=== PATIENT | female | born 1930 | race Caucasian/White ===

== ENCOUNTER 2016-08-05 09:08 | Emergency (ER) | payer MEDICARE ==
[2016-08-05 09:32] VITALS: BP 121/67
[2016-08-05] MEDS ORDERED: Nitrofurantoin Macrocrystals* 50 MG CAP PO ONE (10:38)
--- NOTE | 2016-08-05 11:04 | UC ---
Geovanna Galicia Salem, scribed for Beth Rouse MD on 08/05/16 at 1031 . Abdominal Pain Female HPI - HPI Summary HPI Summary: Patient is a 85 y/o female who presents to the with abd and back pain for several weeks. She denies CP, SOB, vomiting, dysuria, polyuria, pruritus, or vaginal discharge, but reports odor to urine and urinary frequency. She also reports chills, nausea, loss of appetite, and anxiety about an upcoming move into [place]. Pt scheduled to move on Sunday. Pts daughter present at bedside reports that pt saw her PCP, Dr. Daly but did not discuss the abd or back pain. Daughter reports that pt did not eat yesterday, but had breakfast today. She took 2 Acetaminophens yesterday, but has not taken any today. Pt has a hx of UTI with previous use of pessary Patients medication reviewed this visit. - History of Current Complaint Chief Complaint: UCAbdominalPain Stated Complaint: LOWER BACK/LOWER ABD PAIN Time Seen by Provider: 08/05/16 09:45 Hx Obtained From: Patient Onset/Duration: Gradual Onset, Still Present Timing: Constant Severity Initially: Moderate Severity Currently: Moderate Location: Diffuse Aggravating Factor(s): Nothing Alleviating Factor(s): Nothing Associated Signs and Symptoms: Positive: Back Pain, Nausea. Negative: Fever, Chest Pain, Vomiting Allergies/Adverse Reactions: Allergies Allergy/AdvReac Type Severity Reaction Status Date / Time Penicillins [PCN] Allergy Rash Verified 08/05/16 09:32 Sulfa Antibiotics Allergy Rash Verified 08/05/16 09:32 Atorvastatin [From Lipitor] AdvReac Unknown Joint Pain Verified 08/05/16 09:32 Simvastatin [From Zocor] AdvReac Unknown Joint Pain Verified 08/05/16 09:32 PMH/Surg Hx/FS Hx/Imm Hx Previously Healthy: Yes Endocrine History Of: Denies: Diabetes Cardiovascular History Of: Reports: Cardiac Disorders - stent, Hypertension Denies: Pacemaker/ICD Respiratory History Of: Denies: Asthma GI/ History Of: Reports: Kidney Stones - HAS HAD IN THE PAST, Renal Disease - 1 KIDNEY ATROPHIED Other History Of: Anticoagulant Therapy - 81 ASA DAILY - Surgical History Surgical History: Yes Surgery Procedure, Year, and Place: GALLBLADDER,. TONSILS AND ADNOIDS,. LEFT FEMORAL ARTERY STENTING/ANGIOGRAPHY,. BILATERAL CATARACTS,. MENISCUS CLEANED UP RIGHT KNEE,. RIGHT FOOT TENDON REPAIR OCTOBER 2015 (TENDON "SNAPPED",. HERNIA REPAIR,. HEMMOROIDECTOMY,. APPENDECTOMY - Family History Known Family History: Positive: Cardiac Disease, Hypertension, Other - CVA. - Social History Alcohol Use: None Substance Use Type: None Smoking Status (MU): Former Smoker Review of Systems Constitutional: Chills Skin: Negative Eyes: Negative ENT: Negative Respiratory: Negative Cardiovascular: Negative Gastrointestinal: Abdominal Pain, Other - Nausea. Loss of appetite. Genitourinary: Other - Odor. Motor: Negative Neurovascular: Negative Musculoskeletal: Other: - Back pain. Neurological: Negative Psychological: Anxious All Other Systems Reviewed And Are Negative: Yes Physical Exam Triage Information Reviewed: Yes Appearance: Well-Appearing, No Pain Distress, Well-Nourished Vital Signs: Initial Vital Signs Temp 97.4 F 08/05/16 09:25 Pulse 69 08/05/16 09:25 Resp 18 08/05/16 09:25 BP 121/67 08/05/16 09:25 Pulse Ox 100 08/05/16 09:25 Vital Signs Reviewed: Yes Eye Exam: Normal Eyes: Positive: Conjunctiva Clear, Conjunctiva Inflamed ENT Exam: Normal ENT: Positive: Normal ENT inspection, Hearing grossly normal, Pharynx normal, TMs normal Dental Exam: Normal Neck exam: Normal Neck: Positive: Supple, Nontender, No Lymphadenopathy Respiratory Exam: Normal Respiratory: Positive: Chest non-tender, Lungs clear, Normal breath sounds, No respiratory distress Cardiovascular Exam: Normal Cardiovascular: Positive: RRR, No Murmur Abdominal Exam: Normal Abdomen Description: Positive: Nontender, No Organomegaly, Soft, Other: - very minimal suprapubic discomfort with palpation. no guarding, no rebound no CVA tenderness Musculoskeletal: Positive: Other: - No pain c/t/l/s + SLE b/l + ambulatory with walker without difficulty or unsteady gait Neurological Exam: Normal Psychological Exam: Normal Skin Exam: Normal Abd Pain Female Course/Dx - Course Course Of Treatment: Pt presents with mild abd pain, malodorous urine, and frequency. pt with mild nausea and back pain. Pt with non-concerning exam. + UTI. culture ordered. macrobid. encourage fluids. reassurance. return prn - Differential Dx/Diagnosis Provider Diagnoses: uti Discharge - Discharge Plan Condition: Stable Disposition: HOME Prescriptions: Nitrofurantoin Monohyd Macro [Macrobid] 100 mg PO BID #20 cap Patient Education Materials: Urinary Tract Infection in Women (ED) Referrals: Ede Daly MD [Primary Care Provider] - Additional Instructions: - Stay well hydrated. Drink plenty of non-alcoholic, non-caffinated beverages - Okay to take Tylenol every 6 hours as needed for pain - Your urine has been sent for additional testing - if you need a different antibiotics you will receive a call from the hospital - Schedule a follow-up appointment with your doctor in 7-10 days to make sure your infection has cleared. Call your doctor or return with questions or concerns The documentation as recorded by the Geovanna mcclelland Salem accurately reflects the service I personally performed and the decisions made by , Beth Rouse MD.
== END 2016-08-05 10:45 | disposition home or self-care (01) ==
LOC: UCEAST 09:08
DX: N39.0 Urinary tract infection, site not specified (principal); I10 Essential (primary) hypertension; Z87.442 Personal history of urinary calculi; Z88.0 Allergy status to penicillin; Z88.2 Allergy status to sulfonamides; Z79.82 Long term (current) use of aspirin; Z87.891 Personal history of nicotine dependence
CPT/HCPCS: 81003; 87086; 99212; A9270-GY; G0463

== ENCOUNTER 2016-08-16 16:30 | Emergency (ER) | payer MEDICARE ==
[2016-08-16] MEDS ORDERED: NS 0.9% 500 ML BAG* 500 ML IV ONE (21:00)
[2016-08-16 21:17] LABS: Hematocrit 36 % (35-47); Hemoglobin 12.1 g/dl (12.0-16.0); Mean Corpuscular HGB Conc 34 g/dl (31-36); Mean Corpuscular Hemoglobin 32 pg (27-31); Mean Corpuscular Volume 94 fL (80-97); Mean Platelet Volume 8 um3 (7.4-10.4); Red Blood Count 3.78 10^6/ul (4.0-5.4); Red Cell Distribution Width 17 % (10.5-15); White Blood Count 7.3 10^3/ul (3.5-10.8)
[2016-08-16 21:32] LABS: Albumin 3.6 g/dL (3.2-5.2); BUN/Creatinine Ratio 20.5 (8-20); C Reactive Protein 6.34 mg/L (< 5.00); Calcium 10.9 mg/dL (8.6-10.3); EGFR African American 90.1 (>60); Globulin 2.3 g/dL (2-4); Total Bilirubin 0.7 mg/dL (0.2-1.0); Total Protein 5.9 g/dL (6.4-8.9)
--- NOTE | 2016-08-16 21:34 | RAD ---
INDICATION: Abdominal pain and constipation. COMPARISON: Comparison is made with prior study from January 26, 2015 TECHNIQUE: A CT scan of the abdomen and pelvis was performed without intravenous or oral contrast. Contiguous axial sections were obtained from the lung bases through the symphysis pubis. Images were reconstructed in the coronal and sagittal planes. FINDINGS: The lung bases are clear. No pleural effusion is present. The liver and spleen are within normal limits in size without significant focal abnormality on this noncontrast study. The patient is status post cholecystectomy. The pancreas appears to be within normal limits. The adrenal glands appear to be within normal limits. The right kidney is normal in size. The left kidney is severely atrophic with multiple hypodense lesions most consistent with cysts. There are bilateral renal vascular calcifications and small bilateral renal calculi measuring up to 3 mm in size in the right kidney. No hydronephrosis is seen. The abdominal aorta is ectatic and tortuous. There is severe calcific plaque present. No significant enlarged retroperitoneal lymph nodes are seen. The stomach, small and large bowel appear nondistended. The appendix is not visualized. There is moderate to severe descending and sigmoid diverticulosis without evidence for diverticulitis. There is a small to moderate amount of retained stool present. The uterus is retroverted and normal in size. No free intraperitoneal air or fluid is seen. No significant focal osseous abnormality is seen. IMPRESSION: 1. NO EVIDENCE FOR ACUTE FINDING OR CAUSE FOR THE PATIENT'S ABDOMINAL PAIN IS SEEN. 2. EXTENSIVE DESCENDING AND SIGMOID DIVERTICULOSIS WITHOUT EVIDENCE FOR DIVERTICULITIS. 3. SMALL BILATERAL NONOBSTRUCTING RENAL CALCULI. 4. ATROPHIC LEFT KIDNEY WITH MULTIPLE CYSTS.
--- NOTE | 2016-08-16 22:36 | ED ---
Charlotte Galicia Erika, scribed for Harsh Soto MD on 08/16/16 at 2156 . Abdominal Pain/Female - HPI Summary HPI Summary: Patient is an 85-year-old female presenting to the ED with her daughter with a CC of bilateral lower abdominal cramping for about 1 week. Patient was seen by an [facility] on 08/11/2016 and had an abdominal XR that showed bowel impaction. She was given magnesium citrate and has been taking it since then. She states she has had decreased appetite, but denies vomiting. She reports she has been having loose stools. Pt also reported back pain previously but denies any currently. Pt was on Macrobid 1 week ago for possible UTI but discontinued use on 08/11 due to negative urine culture. PSHx tubal ligation, appendectomy, cholecystectomy. Pt only has one functional kidney. - History of Current Complaint Chief Complaint: EDAbdPain Stated Complaint: IMPACTED BOWELS-SENT BY DR MONK Time Seen by Provider: 08/16/16 20:37 Hx Obtained From: Patient, Family/Director [employer] - Daughter Onset/Duration: Gradual Onset, Lasting Weeks - 1 week, Still Present Timing: Constant Severity Currently: Moderate Pain Intensity: 6 Pain Scale Used: 0-10 Numeric Location: Discrete At: RLQ, Discrete At: LLQ Radiates: Yes Radiates to: Back Character: Cramping Associated Signs and Symptoms: Positive: Decreased Appetite, Diarrhea. Negative : Vomiting Allergies/Adverse Reactions: Allergies Allergy/AdvReac Type Severity Reaction Status Date / Time Penicillins [PCN] Allergy Rash Verified 08/16/16 19:20 Sulfa Antibiotics Allergy Rash Verified 08/16/16 19:20 Atorvastatin [From Lipitor] AdvReac Unknown Joint Pain Verified 08/16/16 19:20 Simvastatin [From Zocor] AdvReac Unknown Joint Pain Verified 08/16/16 19:20 PMH/Surg Hx/FS Hx/Imm Hx Endocrine/Hematology History: Reports: Hx Anticoagulant Therapy - 81 ASA DAILY Denies: Hx Diabetes Cardiovascular History: Reports: Hx Hypertension, Other Cardiovascular Problems/ Disorders - HEART MURMUR Denies: Hx Pacemaker/ICD Respiratory History: Denies: Hx Asthma GI History: Reports: Hx Hiatal Hernia History: Reports: Hx Kidney Stones - HAS HAD IN THE PAST, Hx Renal Disease - 1 KIDNEY ATROPHIED Musculoskeletal History: Reports: Hx Arthritis - NECK, Hx Bursitis Sensory History: Reports: Hx Cataracts, Hx Contacts or Glasses - GLASSES Denies: Hx Hearing Aid Opthamlomology History: Reports: Hx Cataracts, Hx Contacts or Glasses - GLASSES Psychiatric History: Reports: Hx Panic Disorder - GETS STARTLED REAL EASY - Surgical History Surgery Procedure, Year, and Place: GALLBLADDER,. TONSILS AND ADNOIDS,. LEFT FEMORAL ARTERY STENTING/ANGIOGRAPHY,. BILATERAL CATARACTS,. MENISCUS CLEANED UP RIGHT KNEE,. RIGHT FOOT TENDON REPAIR OCTOBER 2015 (TENDON "SNAPPED",. HERNIA REPAIR,. HEMMOROIDECTOMY,. APPENDECTOMY Hx Anesthesia Reactions: No Infectious Disease History: No Infectious Disease History: Reports: Hx Shingles Denies: Traveled Outside the [place] in Last 30 Days - Family History Known Family History: Positive: Cardiac Disease, Hypertension, Other - CVA. - Social History Alcohol Use: None Hx Substance Use: No Substance Use Type: Reports: None Hx Tobacco Use: Yes Smoking Status (MU): Former Smoker Review of Systems Gastrointestinal: Other - decreased appetite Positive: Abdominal Pain, Diarrhea. Negative: Vomiting Positive: Myalgia - back pain All Other Systems Reviewed And Are Negative: Yes Physical Exam Triage Information Reviewed: Yes Vital Signs On Initial Exam: Initial Vitals Temp Pulse Resp BP Pulse Ox 97.3 F 73 17 130/53 98 08/16/16 16:46 08/16/16 16:46 08/16/16 16:46 08/16/16 16:46 08/16/16 16:46 Vital Signs Reviewed: Yes Appearance: Positive: Well-Appearing, No Pain Distress Skin: Positive: Warm, Skin Color Reflects Adequate Perfusion, Dry Head/Face: Positive: Normal Head/Face Inspection Eyes: Positive: EOMI, MA[place] ENT: Positive: Other - oral mucosa dry Neck: Positive: Supple, Nontender Respiratory/Lung Sounds: Positive: Clear to Auscultation, Breath Sounds Present Cardiovascular: Positive: RRR Abdomen Description: Positive: Soft, Other: - Mild mid-abdominal tenderness to palpation Bowel Sounds: Positive: Present - but high-pitched Musculoskeletal: Positive: Normal, Strength/ROM Intact Neurological: Positive: Normal, Sensory/Motor Intact, Alert, Oriented to Person Place, Time Psychiatric: Positive: Affect/Mood Appropriate Diagnostics - Vital Signs Vital Signs Temp Pulse Resp BP Pulse Ox 08/16/16 19:18 98.1 F 82 18 114/50 97 08/16/16 18:12 96.9 F 76 17 127/56 99 08/16/16 16:46 97.3 F 73 17 130/53 98 - Laboratory Lab Results: Lab Results 08/16/16 08/16/16 08/16/16 Range/Units 21:05 21:05 21:05 WBC 7.3 (3.5-10.8) 10^3/ul RBC 3.78 L (4.0-5.4) 10^6/ul Hgb 12.1 (12.0-16.0) g/dl Hct 36 (35-47) % MCV 94 (80-97) fL MCH 32 H (27-31) pg MCHC 34 (31-36) g/dl RDW 17 H (10.5-15) % Plt Count 138 L (150-450) 10^3/ul MPV 8 (7.4-10.4) um3 Neut % (Auto) 59.6 (38-83) % Lymph % (Auto) 28.9 (25-47) % [place]ata[place] % (Auto) 7.7 (1-9) % Eos % (Auto) 3.4 (0-6) % Baso % (Auto) 0.4 (0-2) % Absolute Neuts (auto) 4.4 (1.5-7.7) 10^3/ul Absolute Lymphs (auto) 2.1 (1.0-4.8) 10^3/ul Absolute Monos (auto) 0.6 (0-0.8) 10^3/ul Absolute Eos (auto) 0.2 (0-0.6) 10^3/ul Absolute Basos (auto) 0 (0-0.2) 10^3/ul Absolute Nucleated RBC 0.01 10^3/ul Nucleated RBC % 0.1 Sodium 131 L (133-145) mmol/L Potassium 3.0 L (3.5-5.0) mmol/L Chloride 95 L (101-111) mmol/L Carbon Dioxide 30 (22-32) mmol/L Anion Gap 6 (2-11) mmol/L BUN 16 (6-24) mg/dL Creatinine 0.78 (0.51-0.95) mg/dL Est GFR ( Amer) 90.1 (>60) Est GFR (Non-Af Amer) 70.0 (>60) BUN/Creatinine Ratio 20.5 H (8-20) Glucose 106 H (70-100) mg/dL Lactic Acid 1.0 (0.5-2.0) mmol/L Calcium 10.9 H (8.6-10.3) mg/dL Total Bilirubin 0.70 (0.2-1.0) mg/dL AST 26 (13-39) U/L ALT 17 (7-52) U/L Alkaline Phosphatase 57 (34-104) U/L C-Reactive Protein 6.34 H (< 5.00) mg/L Total Protein 5.9 L (6.4-8.9) g/dL Albumin 3.6 (3.2-5.2) g/dL Globulin 2.3 (2-4) g/dL Albumin/Globulin Ratio 1.6 (1-3) Lipase 35 (11.0-82.0) U/L Result Diagrams: 08/16/16 21:05 08/16/16 21:05 Lab Statement: Any lab studies that have been ordered have been reviewed, and results considered in the medical decision making process. - CT CT A/P W/O CT Interpretation Completed By: Radiologist - IMPRESSION: 1. NO EVIDENCE FOR ACUTE FINDING OR CAUSE FOR THE PATIENT'S ABDOMINAL PAIN IS SEEN. 2. EXTENSIVE DESCENDING AND SIGMOID DIVERTICULOSIS WITHOUT EVIDENCE FOR DIVERTICULITIS. 3. SMALL BILATERAL NONOBSTRUCTING RENAL CALCULI. 4. ATROPHIC LEFT KIDNEY WITH MULTIPLE CYSTS. Re-Evaluation - Re-Evaluation First Eval Re-Evaluation Time: 22:26 Comment: Discussed CT results and lab work with patient and family. Abdominal Pain Fem Course/Dx - Course Course Of Treatment: NO CRITICAL CARE TIME. DISCUSSED LAB/CT RESULTS WITH PATIENT/FAMILY. DISCHARGE HOME STABLE. - Diagnoses Provider Diagnoses: Abdominal pain, Constipation Discharge - Discharge Plan Condition: Stable Disposition: HOME Patient Education Materials: Abdominal Pain (ED), Constipation (ED) Referrals: Ede Monk MD [Primary Care Provider] - Additional Instructions: FOLLOW UP WITH YOUR DOCTOR. RETURN TO THE EMERGENCY DEPARTMENT FOR ANY WORSENING OF YOUR CONDITION; PAIN, FEVER, YOU FEEL ILL OR QUESTIONS OR CONCERNS. The documentation as recorded by the Charlotte mcclelland Erika accurately reflects the service I personally performed and the decisions made by me, Harsh Soto MD.
[2016-08-16 23:01] VITALS: BP 132/65
== END 2016-08-16 23:00 | disposition home or self-care (01) ==
LOC: ED 16:30
DX: R10.30 Lower abdominal pain, unspecified (principal); K59.00 Constipation, unspecified; R19.7 Diarrhea, unspecified; R63.0 Anorexia; Z87.891 Personal history of nicotine dependence
CPT/HCPCS: 36415; 74176; 80053; 83605; 83690; 85025; 86140; 99283

== ENCOUNTER 2016-11-07 18:22 | Inpatient (IN) | payer MEDICARE ==
[2016-11-07] MEDS ORDERED: NS 0.9% 1000 ML* 1,000 ML IV ONE (19:50)
[2016-11-07] MEDS ORDERED: Ondansetron INJ* 2 MG/ML VIAL IV ONE (20:07)
[2016-11-07 20:40] LABS: Hematocrit 41 % (35-47); Hemoglobin 13.6 g/dl (12.0-16.0); Mean Corpuscular HGB Conc 33 g/dl (31-36); Mean Corpuscular Hemoglobin 32 pg (27-31); Mean Corpuscular Volume 96 fL (80-97); Mean Platelet Volume 8 um3 (7.4-10.4); Red Blood Count 4.28 10^6/ul (4.0-5.4); Red Cell Distribution Width 15 % (10.5-15); White Blood Count 25.9 10^3/ul (3.5-10.8)
[2016-11-07 20:42] LABS: Add Diff/Slide Review? Slide Review Added; Comments Flag Yes
[2016-11-07 20:55] LABS: C Reactive Protein 128.4 mg/L (< 5.00)
[2016-11-07 21:06] LABS: Troponin I 0.05 ng/mL (<0.04)
[2016-11-07 22:59] LABS: Urine Bacteria Absent (Absent); Urine Bilirubin Negative (Negative); Urine Glucose 1+(50 mg/dL) (Negative); Urine Nitrite Negative (Negative)
[2016-11-07] MEDS ORDERED: Ciprofloxacin 400MG IVPREMIX(* 400 MG/200 ML BAG IVPB ONE (23:07)
[2016-11-07] MEDS ORDERED: metroNIDAZOLE IV 500 MG/100ML* 500 MG/100 ML BAG IVPB ONE (23:07)
--- NOTE | 2016-11-07 23:13 | HP ---
H&P (Free Text) History and Physical: PCP: Tisha Sarkar MD Date/Time of Evaluation: 11/07/20162119 CC: abdominal pain & fall HPI: Mrs Hoang (pronounced Mus-eeky) is an 85YO female resident of [facility] w/ HX HTN, PAOD s/p failed RLE arterial stent, non-functional L kidney, chronic episodic abdominal pain w/ diarrhea who developed abdominal pain with diarrhea this AM and was found on the floor of her apartment. The on-call physician for the facility was called and ordered lab work revealing elevated WBCs and recommended evaluation. She denies F/C, N/V, chest pain, SOB, palpitations, B/U/F of urine, black/bloody stools, or other issues. Evaluation is most notable for a CT abd/pel WO read as enteritis and WBCs of 25k. Also noted on her CT was extensive aortic calcifications giving rise to concern for chronic intestinal ischemia in light of her HX abdominal pain/ diarrhea and known PAOD. PMedHx HTN PAOD s/p RLE arterial stent non-functioning L kidney chronic episodic abdominal pain w/ diarrhea hiatal hernia OA moderately hard of hearing Ambulatory Orders Amlodipine Besylate [Norvasc] 5 mg PO DAILY 04/09/12 Aspirin Low Dose CHEW TAB* [Aspirin Low Dose TAB*] 81 mg PO DAILY 04/09/12 Hydrochlorothiazide TAB* [Hydrodiuril TAB*] 25 mg PO DAILY 04/09/12 Losartan TAB* [Cozaar TAB*] 50 mg PO BID 04/09/12 Metoprolol Tartrate TAB* [Lopressor TAB*] 25 mg PO BID 04/09/12 Multi For Her 50+ 1 tab PO DAILY 04/09/12 Acetaminophen TAB* [Tylenol TAB*] 650 mg PO Q6HR PRN 08/30/12 Nitrofurantoin Monohyd Macro [Macrobid] 100 mg PO BID #20 cap 08/05/16 Allergies Penicillins [PCN] Allergy (Verified 08/16/16 19:20) Rash Sulfa Antibiotics Allergy (Verified 08/16/16 19:20) Rash Atorvastatin [From Lipitor] Adverse Reaction (Unknown, Verified 08/16/16 19:20) Joint Pain Simvastatin [From Zocor] Adverse Reaction (Unknown, Verified 08/16/16 19:20) Joint Pain PSurgHx OU catract extraction cholecystectomy appendectomy hemorrhoidectomy RLE arterial stent, subsequently failed R knee arthroscopy SocHx: quit smoking >25years ago, denies alcohol or recreational drug HX; , resides at [facility]; full code trial of intubation FamHx: positive for CAD, HTN, HLD, DM2 ROS: as above, otherwise reviewed and all were negative Constitutional: NAD, normally developed, well-nourished elderly white female vitals: Vital Signs Temp 37.0 C 11/07/16 19:31 Pulse 90 11/07/16 23:00 Resp 18 11/07/16 23:00 BP 117/67 11/07/16 23:00 Pulse Ox 92 11/07/16 23:00 Intake & Output 11/06/16 11/07/16 11/07/16 23:59 11:59 23:59 Weight 65.771 kg HEENM: atraumatic; sclera/conjunctiva: non-icteric/clear; hearing: moderately hard of hearing; oropharynx: clear, mucosa tacky Neck: soft tissue: non-tender; thyroid: normal Pulmonary: clear to auscultation bilaterally, good aeration, no accessory muscle use CV: RR/RR, normal S1S2, no carotid bruit, no jugular venous distention, 2+ B DP/ PT, no edema Abdominal: soft, non-distended, mild/mod tenderness in epigastrum, no rebound/ guarding/rigidity, normoactive bowel sounds, no hepatosplenomegaly or masses, no costovertebral angle tenderness Musculoskeletal: general: grossly intact; no overt deformities Integumental: normal appearance and texture of exposed skin Psychiatric orientation: AA&O to PPS affect: calm mood: cooperative eye contact: content: memory: responses: insight: Testing: Lab Results 11/07/16 11/07/16 11/07/16 Range/Units 20:30 20:30 20:30 WBC 25.9 H (3.5-10.8) 10^3/ul RBC 4.28 (4.0-5.4) 10^6/ul Hgb 13.6 (12.0-16.0) g/dl Hct 41 (35-47) % MCV 96 (80-97) fL MCH 32 H (27-31) pg MCHC 33 (31-36) g/dl RDW 15 (10.5-15) % Plt Count 177 (150-450) 10^3/ul MPV 8 (7.4-10.4) um3 Neut % (Auto) 89.5 H (38-83) % Lymph % (Auto) 4.3 L (25-47) % Harmon % (Auto) 6.0 (1-9) % Eos % (Auto) 0 (0-6) % Baso % (Auto) 0.2 (0-2) % Absolute Neuts (auto) 23.2 H (1.5-7.7) 10^3/ul Absolute Lymphs (auto) 1.1 (1.0-4.8) 10^3/ul Absolute Monos (auto) 1.5 H (0-0.8) 10^3/ul Absolute Eos (auto) 0 (0-0.6) 10^3/ul Absolute Basos (auto) 0.1 (0-0.2) 10^3/ul Absolute Nucleated RBC 0.01 10^3/ul Nucleated RBC % 0 INR (Anticoag Therapy) 0.98 (0.89-1.11) APTT 28.6 (26.0-36.3) seconds Lactic Acid 1.5 (0.5-2.0) mmol/L Troponin I (<0.04) ng/mL C-Reactive Protein (< 5.00) mg/L B-Natriuretic Peptide ( - 100) pg/mL Lipase (11.0-82.0) U/L Urine Color Urine Appearance Urine pH (5-9) Ur Specific [place] (1.010-1.030) Urine Protein (Negative) Urine Ketones (Negative) Urine Blood (Negative) Urine Nitrate (Negative) Urine Bilirubin (Negative) Urine Urobilinogen (Negative) Ur Leukocyte Esterase (Negative) Urine WBC (Auto) (Absent) Urine RBC (Auto) (Absent) Ur Squamous Epith Cells (Absent) Urine Bacteria (Absent) Urine Glucose (Negative) 11/07/16 11/07/16 11/07/16 Range/Units 20:30 20:30 22:41 WBC (3.5-10.8) 10^3/ul RBC (4.0-5.4) 10^6/ul Hgb (12.0-16.0) g/dl Hct (35-47) % MCV (80-97) fL MCH (27-31) pg MCHC (31-36) g/dl RDW (10.5-15) % Plt Count (150-450) 10^3/ul MPV (7.4-10.4) um3 Neut % (Auto) (38-83) % Lymph % (Auto) (25-47) % Harmon % (Auto) (1-9) % Eos % (Auto) (0-6) % Baso % (Auto) (0-2) % Absolute Neuts (auto) (1.5-7.7) 10^3/ul Absolute Lymphs (auto) (1.0-4.8) 10^3/ul Absolute Monos (auto) (0-0.8) 10^3/ul Absolute Eos (auto) (0-0.6) 10^3/ul Absolute Basos (auto) (0-0.2) 10^3/ul Absolute Nucleated RBC 10^3/ul Nucleated RBC % INR (Anticoag Therapy) (0.89-1.11) APTT (26.0-36.3) seconds Lactic Acid (0.5-2.0) mmol/L Troponin I 0.05 H* (<0.04) ng/mL C-Reactive Protein 128.40 H (< 5.00) mg/L B-Natriuretic Peptide 569 H ( - 100) pg/mL Lipase 11 (11.0-82.0) U/L Urine Color Yellow Urine Appearance Clear Urine pH 6.0 (5-9) Ur Specific [place] 1.012 (1.010-1.030) Urine Protein Negative (Negative) Urine Ketones Negative (Negative) Urine Blood Negative (Negative) Urine Nitrate Negative (Negative) Urine Bilirubin Negative (Negative) Urine Urobilinogen Negative (Negative) Ur Leukocyte Esterase Trace H (Negative) Urine WBC (Auto) Trace(0-5/hpf) (Absent) Urine RBC (Auto) Trace(0-2/hpf) (Absent) Ur Squamous Epith Cells Present H (Absent) Urine Bacteria Absent (Absent) Urine Glucose 1+(50 mg/dl) H (Negative) CT abd/pel WO, personally reviewed: Moderately thickened small bowel RLQ w/ congested mesenteric vessels, probably enteritis. Short segment of borderline dilated small bowel in this region, probably ileus or partial obstruction. Diverticulosis colon w/o acute deverticulitis. Fluid in rectum. No colitis, free fluid, or free air. Appendix not seen. No pericecal inflammation to suggest acute appendicitis. Atrophic L kidney containing multiple cysts. Vascular calcifications more likely than non-obstructing stones R kidney. No ureterolithiasis or obstructive uropathy. No bladder calculi. Unremarkable pancreas. Cholecystectomy. Emphysematous changes lung bases. Impression: 85F presenting with abdominal pain found to have probable enteritis +/- early SBO vs ileus DIAGNOSIS & PLAN Primary enteritis +/- early SBO vs ileus : IVFs : IV ciprofloxacin & metronidazole : blood CX : pain control : supportive care elevated troponin : no chest pain/SOB, suspect demand ischemia : telemetry, trend elevated BNP : no s/s CHF, observe respiratory status closely while on IVFs : daily weights : strict I&Os hypoKalemia : 2nd diarrhea : replace & recheck : check baseline pCXR Secondary HTN : review meds once reconciled PAOD s/p renal artery stent : review meds once reconciled Admission Rational: inpatient for acute enteritis +/- SBO/ileus not anticipated to resolve adequately w/i 48H to allow for discharge DVTp: SCDs & heparin SQ Code Status: DNR HCP: daughter, Reshma Stone
[2016-11-07] MEDS ORDERED: Ondansetron INJ* 2 MG/ML VIAL IV PRN (23:40)
[2016-11-08 00:17] LABS: Albumin 4.1 g/dL (3.2-5.2); BUN/Creatinine Ratio 24.4 (8-20); Calcium 10.8 mg/dL (8.6-10.3); EGFR African American 80.5 (>60); EGFR Non-African American 62.6 (>60); Globulin 2.7 g/dL (2-4); Total Protein 6.8 g/dL (6.4-8.9)
[2016-11-08] MEDS ORDERED: Potassium Chlor TAB* 20 MEQ TAB.ER PO ONE (00:39)
--- NOTE | 2016-11-08 01:55 | ED ---
Anita Galicia Rebecca, scribed for Harsh Soto MD on 11/07/16 at 1945 . Abdominal Pain/Female - HPI Summary HPI Summary: Pt is an 85 y/o F who presents to ED c/o LLQ and RLQ abdominal pain. Daughter reports pain began 2 weeks ago. Pain is currently moderate, ranked 5/10. Additionally c/o diarrhea and fatigue. Diarrhea alleviated by 2 Immodium taken this morning, with no further BM since administration. Denies fever, chills, SOB , acute edema, dysuria or urine frequency. She was found this morning on the ground at [place] s/p mechanical fall which she was able to get herself up from. Daughter reports that the pt's PCP contreras blood this morning, called with results that she had elevated WBC and advised that she be evaluated by [facility] [place] ED. PSHx hysterectomy, appy, cholecystectomy. PMHx diverticulitis. Is not on any blood thinners. - History of Current Complaint Chief Complaint: EDAbdPain Stated Complaint: FALL Time Seen by Provider: 11/07/16 19:37 Hx Obtained From: Patient, Family/Showroom Consultant - Daughters Onset/Duration: Lasting Weeks - 2 weeks, Still Present Severity Currently: Moderate Pain Intensity: 5 Pain Scale Used: 0-10 Numeric Location: Discrete At: RLQ, Discrete At: LLQ Aggravating Factor(s): Nothing Alleviating Factor(s): Medications - Immodium Associated Signs and Symptoms: Positive: Diarrhea, Other: - Fatigue. Negative: Urinary Symptoms Allergies/Adverse Reactions: Allergies Allergy/AdvReac Type Severity Reaction Status Date / Time Penicillins [PCN] Allergy Rash Verified 08/16/16 19:20 Sulfa Antibiotics Allergy Rash Verified 08/16/16 19:20 Atorvastatin [From Lipitor] AdvReac Unknown Joint Pain Verified 08/16/16 19:20 Simvastatin [From Zocor] AdvReac Unknown Joint Pain Verified 08/16/16 19:20 PMH/Surg Hx/FS Hx/Imm Hx Endocrine/Hematology History: Reports: Hx Anticoagulant Therapy - 81 ASA DAILY Denies: Hx Diabetes Cardiovascular History: Reports: Hx Hypertension, Other Cardiovascular Problems/ Disorders - HEART MURMUR Denies: Hx Pacemaker/ICD Respiratory History: Denies: Hx Asthma GI History: Reports: Hx Hiatal Hernia History: Reports: Hx Kidney Stones - HAS HAD IN THE PAST, Hx Renal Disease - 1 KIDNEY ATROPHIED Musculoskeletal History: Reports: Hx Arthritis - NECK, Hx Bursitis Sensory History: Reports: Hx Cataracts, Hx Contacts or Glasses - GLASSES Denies: Hx Hearing Aid Opthamlomology History: Reports: Hx Cataracts, Hx Contacts or Glasses - GLASSES Psychiatric History: Reports: Hx Panic Disorder - GETS STARTLED REAL EASY - Surgical History Surgery Procedure, Year, and Place: GALLBLADDER,. TONSILS AND ADNOIDS,. LEFT FEMORAL ARTERY STENTING/ANGIOGRAPHY,. BILATERAL CATARACTS,. MENISCUS CLEANED UP RIGHT KNEE,. RIGHT FOOT TENDON REPAIR OCTOBER 2015 (TENDON "SNAPPED",. HERNIA REPAIR,. HEMMOROIDECTOMY,. APPENDECTOMY ,. HYSTERECTOMY Hx Anesthesia Reactions: No Infectious Disease History: No Infectious Disease History: Reports: Hx Shingles Denies: Traveled Outside the [place] in Last 30 Days - Family History Known Family History: Positive: Cardiac Disease, Hypertension, Other - CVA. - Social History Alcohol Use: None Hx Substance Use: No Substance Use Type: Reports: None Hx Tobacco Use: Yes Smoking Status (MU): Former Smoker Review of Systems Negative: Fever, Chills Negative: Shortness Of Breath Positive: Abdominal Pain - Lower abdomen, Diarrhea Negative: dysuria, frequency Negative: Edema - Denies acute edema All Other Systems Reviewed And Are Negative: Yes Physical Exam - Summary Physical Exam Summary: General: well-appearing, no pain distress Skin: warm, color reflects adequate perfusion, dry Head: normal Eyes: EOMI, MAINE ENT: oral mucosa dry Neck: supple, nontender Respiratory: CTA, breath sounds present Cardiovascular: RRR Abdomen: soft, mild tenderness in the lower abdomen to palpation Bowel: hypoactive bowel sounds Musculoskeletal: strength/ROM intact, no flank tenderness, mild pedal edema Neurological: normal, sensory/motor intact, A&O x3 Psychological: affect/mood appropriate Triage Information Reviewed: Yes Vital Signs On Initial Exam: Initial Vitals Temp Pulse Resp BP Pulse Ox 98.0 F 63 18 133/58 96 11/07/16 18:24 11/07/16 18:24 11/07/16 18:24 11/07/16 18:24 11/07/16 18:24 Vital Signs Reviewed: Yes - Angelica Coma Scale Coma Scale Total: 14 Diagnostics - Vital Signs Vital Signs Temp Pulse Resp BP Pulse Ox 11/07/16 19:31 98.6 F 94 20 113/48 95 11/07/16 18:24 98.0 F 63 18 133/58 96 - Laboratory Lab Results: Lab Results 11/07/16 11/07/16 11/07/16 Range/Units 20:30 20:30 20:30 WBC 25.9 H (3.5-10.8) 10^3/ul RBC 4.28 (4.0-5.4) 10^6/ul Hgb 13.6 (12.0-16.0) g/dl Hct 41 (35-47) % MCV 96 (80-97) fL MCH 32 H (27-31) pg MCHC 33 (31-36) g/dl RDW 15 (10.5-15) % Plt Count 177 (150-450) 10^3/ul MPV 8 (7.4-10.4) um3 Neut % (Auto) 89.5 H (38-83) % Lymph % (Auto) 4.3 L (25-47) % [place] % (Auto) 6.0 (1-9) % Eos % (Auto) 0 (0-6) % Baso % (Auto) 0.2 (0-2) % Absolute Neuts (auto) 23.2 H (1.5-7.7) 10^3/ul Absolute Lymphs (auto) 1.1 (1.0-4.8) 10^3/ul Absolute Monos (auto) 1.5 H (0-0.8) 10^3/ul Absolute Eos (auto) 0 (0-0.6) 10^3/ul Absolute Basos (auto) 0.1 (0-0.2) 10^3/ul Absolute Nucleated RBC 0.01 10^3/ul Nucleated RBC % 0 INR (Anticoag Therapy) 0.98 (0.89-1.11) APTT 28.6 (26.0-36.3) seconds Sodium (133-145) mmol/L Potassium (3.5-5.0) mmol/L Chloride (101-111) mmol/L Carbon Dioxide (22-32) mmol/L Anion Gap (2-11) mmol/L BUN (6-24) mg/dL Creatinine (0.51-0.95) mg/dL Est GFR ( Amer) (>60) Est GFR (Non-Af Amer) (>60) BUN/Creatinine Ratio (8-20) Glucose (70-100) mg/dL Lactic Acid 1.5 (0.5-2.0) mmol/L Calcium (8.6-10.3) mg/dL Total Bilirubin (0.2-1.0) mg/dL AST (13-39) U/L ALT (7-52) U/L Alkaline Phosphatase (34-104) U/L Troponin I (<0.04) ng/mL C-Reactive Protein (< 5.00) mg/L B-Natriuretic Peptide ( - 100) pg/mL Total Protein (6.4-8.9) g/dL Albumin (3.2-5.2) g/dL Globulin (2-4) g/dL Albumin/Globulin Ratio (1-3) Lipase (11.0-82.0) U/L Urine Color Urine Appearance Urine pH (5-9) Ur Specific [place] (1.010-1.030) Urine Protein (Negative) Urine Ketones (Negative) Urine Blood (Negative) Urine Nitrate (Negative) Urine Bilirubin (Negative) Urine Urobilinogen (Negative) Ur Leukocyte Esterase (Negative) Urine WBC (Auto) (Absent) Urine RBC (Auto) (Absent) Ur Squamous Epith Cells (Absent) Urine Bacteria (Absent) Urine Glucose (Negative) 11/07/16 11/07/16 11/07/16 Range/Units 20:30 20:30 22:41 WBC (3.5-10.8) 10^3/ul RBC (4.0-5.4) 10^6/ul Hgb (12.0-16.0) g/dl Hct (35-47) % MCV (80-97) fL MCH (27-31) pg MCHC (31-36) g/dl RDW (10.5-15) % Plt Count (150-450) 10^3/ul MPV (7.4-10.4) um3 Neut % (Auto) (38-83) % Lymph % (Auto) (25-47) % [place] % (Auto) (1-9) % Eos % (Auto) (0-6) % Baso % (Auto) (0-2) % Absolute Neuts (auto) (1.5-7.7) 10^3/ul Absolute Lymphs (auto) (1.0-4.8) 10^3/ul Absolute Monos (auto) (0-0.8) 10^3/ul Absolute Eos (auto) (0-0.6) 10^3/ul Absolute Basos (auto) (0-0.2) 10^3/ul Absolute Nucleated RBC 10^3/ul Nucleated RBC % INR (Anticoag Therapy) (0.89-1.11) APTT (26.0-36.3) seconds Sodium 129 L (133-145) mmol/L Potassium 3.0 L (3.5-5.0) mmol/L Chloride 93 L (101-111) mmol/L Carbon Dioxide 25 (22-32) mmol/L Anion Gap 11 (2-11) mmol/L BUN 21 (6-24) mg/dL Creatinine 0.86 (0.51-0.95) mg/dL Est GFR ( Amer) 80.5 (>60) Est GFR (Non-Af Amer) 62.6 (>60) BUN/Creatinine Ratio 24.4 H (8-20) Glucose 132 H (70-100) mg/dL Lactic Acid (0.5-2.0) mmol/L Calcium 10.8 H (8.6-10.3) mg/dL Total Bilirubin 1.00 (0.2-1.0) mg/dL AST 26 (13-39) U/L ALT 12 (7-52) U/L Alkaline Phosphatase 61 (34-104) U/L Troponin I 0.05 H* (<0.04) ng/mL C-Reactive Protein 128.40 H (< 5.00) mg/L B-Natriuretic Peptide 569 H ( - 100) pg/mL Total Protein 6.8 (6.4-8.9) g/dL Albumin 4.1 (3.2-5.2) g/dL Globulin 2.7 (2-4) g/dL Albumin/Globulin Ratio 1.5 (1-3) Lipase 11 (11.0-82.0) U/L Urine Color Yellow Urine Appearance Clear Urine pH 6.0 (5-9) Ur Specific [place] 1.012 (1.010-1.030) Urine Protein Negative (Negative) Urine Ketones Negative (Negative) Urine Blood Negative (Negative) Urine Nitrate Negative (Negative) Urine Bilirubin Negative (Negative) Urine Urobilinogen Negative (Negative) Ur Leukocyte Esterase Trace H (Negative) Urine WBC (Auto) Trace(0-5/hpf) (Absent) Urine RBC (Auto) Trace(0-2/hpf) (Absent) Ur Squamous Epith Cells Present H (Absent) Urine Bacteria Absent (Absent) Urine Glucose 1+(50 mg/dl) H (Negative) Result Diagrams: 11/07/16 20:30 11/07/16 20:30 Lab Statement: Any lab studies that have been ordered have been reviewed, and results considered in the medical decision making process. - CT CT Abd/Pel CT Interpretation Completed By: Radiologist - Moderately thickened small bowel right lower quadrant with congested mesenteric vessels, probably enteritis. Short segment of borderline dilated small bowel in this region, probably ileus or partial obstruction. Diverticulosis colon without acute diverticulitis. Fluid in rectum. No colitis, free fluid or free air. Appendix not seen. No pericecal inflammation to suggest acute appendicitis. Artrophic left kidney containing multiple cysts. Vascular calcifications more likely than nonobstructing stones right kidney. No ureterolithiasis or obstructive uropathy. No bladder calculi. Unremarkable pancreas. Cholecystectomy. Emphysematous changes lung bases. Re-Evaluation - Re-Evaluation First Eval Re-Evaluation Time: 22:59 Comment: Discussed lab and Abd/Pel CT results with the pt and her family. Continues to be tender in the RLQ. Abdominal Pain Fem Course/Dx - Course Course Of Treatment: Pt is an 85 y/o F who presents to ED c/o moderate lower abdominal pain for 2 weeks, currently ranked 5/10. Additionally c/o diarrhea and fatigue. Diarrhea alleviated by 2 Immodium taken this morning. Denies fever , chills, SOB, acute edema, dysuria or urine frequency. She was found this morning on the ground at [place] s/p mechanical fall which she was able to get herself up from. Daughter reports that the pt's PCP contreras blood this morning , called with results that she had elevated WBC and advised that she be evaluated by [facility] [place] ED. PMHx diverticulitis. Is not on any blood thinners. WBC of 25.9, Troponin of 0.05, CRP of 128.40, BNP of 569. CT Abd/Pel findings reported above. Discussed care of pt with Dr. Reid who accepts pt for admission. NO CRITICAL CARE TIME. ADMIT HOSPITALIST STABLE. - Diagnoses Provider Diagnoses: Abdominal pain, Partial obstruction of small intestine, Inflammation of small intestine - Provider Notifications Discussed Care Of Patient With: Rey Reid Time Discussed With Above Provider: 23:07 Instructed by Provider To: Other - Accepts pt for admission. Discharge - Discharge Plan Condition: Stable Disposition: ADMITTED TO [facility] documentation as recorded by the Anita mcclelland Rebecca accurately reflects the service I personally performed and the decisions made by me, Harsh Soto MD.
[2016-11-08 04:39] LABS: Hematocrit 36 % (35-47); Hemoglobin 12.2 g/dl (12.0-16.0); Mean Corpuscular HGB Conc 34 g/dl (31-36); Mean Corpuscular Hemoglobin 32 pg (27-31); Mean Corpuscular Volume 96 fL (80-97); Mean Platelet Volume 9 um3 (7.4-10.4); Red Blood Count 3.78 10^6/ul (4.0-5.4); Red Cell Distribution Width 15 % (10.5-15); White Blood Count 21.6 10^3/ul (3.5-10.8)
[2016-11-08 04:41] LABS: Add Diff/Slide Review? Slide Review Added; Comments Flag Yes
[2016-11-08 04:47] LABS: Calcium 9.6 mg/dL (8.6-10.3); EGFR African American 95.7 (>60); EGFR Non-African American 74.4 (>60); Potassium 2.8 mmol/L (3.5-5.0)
[2016-11-08 04:55] LABS: Troponin I 0.04 ng/mL (<0.04)
[2016-11-08 05:11] LABS: Immature Granulocytes 15 % (0-9); Neutrophil % 75 % (38-83); RBC Morphology Normal (Normal)
[2016-11-08] MEDS: Potassium Chlor TAB* 20 MEQ TAB.ER PO SCH ×2 (06:14→10:39)
[2016-11-08] MEDS: Omeprazole CAP* 20 MG PO SCH (06:14)
[2016-11-08] MEDS: Heparin VIAL(*) 5000 UNITS/ML VIAL (FIVE THOUSAND) SUBCUT SCH ×3 (06:15→21:43)
--- NOTE | 2016-11-08 07:32 | RAD ---
INDICATION: Lower abdominal pain. Diarrhea. COMPARISON: CT August 16, 2016 TECHNIQUE: Axial source images were acquired from the level hemidiaphragms to the symphysis pubis. Examination is performed with oral contrast. No intravenous contrast was given. This limits evaluation of solid viscera. Lung bases: There are emphysematous changes in the lung bases. There is a calcified mitral annulus.. Liver: There is mild hepatomegaly. Noncontrast imaging shows no evidence of a hepatic mass or ductal dilatation. Gallbladder: Cholecystectomy. Spleen: The spleen is normal in size. The noncontrast CT appearance is normal. Pancreas: Noncontrast imaging shows no pancreatic mass or ductal dilitation. Adrenal glands: Suspect mild left adrenal hyperplasia. Kidneys/Bladder: Atrophic left kidney. Bilateral nonobstructive nephrolithiasis. Some of the renal calcifications may be vascular. Exophytic 4.2 cm left renal cyst. Smaller parapelvic cysts. Normal bladder. Adenopathy: There is no evidence of intraperitoneal or retroperitoneal adenopathy. Evaluation is limited without oral contrast. Fluid collections: There are no free or localized fluid collections. Vessels: There are atherosclerotic changes of the aorta and iliac vessels. There is no focal aneurysm. The IVC appears normal Pelvic organs: The uterus and adnexa appear normal GI tract: Possible gastric mucosal thickening. Limited evaluation of the stomach as there is very little oral contrast no specific CT abnormality the small bowel. Moderate diverticula of the sigmoid colon. No CT evidence of acute diverticulitis. No obstruction or perforation. Soft tissues: No soft tissue abnormalities of the extraperitoneal abdomen or pelvis are identified. Osseous structures: Moderately advanced spondylitic change. IMPRESSION: 1. Bilateral nonobstructive nephrolithiasis. 2. Extensive diverticula. No CT evidence of acute diverticulitis 3. Cholecystectomy 4. No acute CT findings.
[2016-11-08] MEDS: Dicyclomine CAP* 10 MG PO SCH ×3 (07:43→16:33)
--- NOTE | 2016-11-08 07:46 | RAD ---
INDICATION: Elevated BNP. COMPARISON: Comparison is made with a prior chest x-ray study from January 26, 2015. TECHNIQUE: A portable view of the chest was obtained. FINDINGS: The heart is within normal limits in size. Note is made of mitral annular calcification. The thoracic aorta is tortuous. The lungs are slightly hyperinflated and clear. No pleural effusion is seen. IMPRESSION: NO EVIDENCE FOR ACUTE DISEASE.
[2016-11-08] MEDS: metroNIDAZOLE IV 500 MG/100ML* 500 MG/100 ML BAG IVPB SCH ×2 (10:38→22:28)
[2016-11-08] MEDS: Acetaminophen TAB* 325 MG PO PRN (11:11)
[2016-11-08] MEDS: oxyCODONE TAB* 5 MG TAB PO PRN ×3 (12:18→20:56)
[2016-11-08] MEDS: Ciprofloxacin 400MG IVPREMIX(* 400 MG/200 ML BAG IVPB SCH (14:26)
[2016-11-08] MEDS ORDERED: Potassium Chlor TAB* 10 MEQ TAB.ER PO ONE (16:57)
[2016-11-08] MEDS: KCL 20 MEQ/100 ML IVPREMIX* 20 MEQ/100 ML BAG IV SCH ×2 (17:06→21:43)
[2016-11-08] MEDS ORDERED: Magnesium Sulf 4 GM/100 ML IV* 4,000 MG/100 ML BAG IVPB ONE (17:30)
--- NOTE | 2016-11-08 17:39 | RAD ---
HISTORY: Right knee trauma, fall COMPARISONS: August 19, 2014 VIEWS: 4, Frontal, lateral, axial, and oblique views of the right knee FINDINGS: BONE DENSITY: There is diffuse osteopenia. BONES: There is no displaced fracture. JOINTS: There is moderate tract or mental osteoarthritis. There is a large suprapatellar joint effusion ALIGNMENT: There is no dislocation. SOFT TISSUES: There is peripheral arterial calcification OTHER FINDINGS: None. IMPRESSION: 1. OSTEOPENIA. 2. OSTEOARTHRITIS. 3. PERIPHERAL ARTERIAL DISEASE. 4. LARGE JOINT EFFUSION. 5. NO ACUTE OSSEOUS INJURY. THE DEGREE OF OSTEOPENIA MAY MAKE A NONDISPLACED FRACTURE RADIOGRAPHICALLY OCCULT. IF SYMPTOMS PERSIST, RECOMMEND REPEAT IMAGING.
--- NOTE | 2016-11-08 17:40 | RAD ---
HISTORY: Rule out obstruction COMPARISONS: August 11, 2016 VIEWS: Frontal views of the abdomen. FINDINGS: BOWEL: There is a nonobstructive bowel gas pattern. There is gaseous distention of the colon. Oral contrast is noted within the colon. CALCULI: There are no abnormal calculi. BONES AND SOFT TISSUES: There is a scoliotic curvature of the spine. Degenerative changes are noted OTHER FINDINGS: The lung bases are clear. There is no subphrenic gas. IMPRESSION: NONOBSTRUCTIVE BOWEL GAS PATTERN. GASEOUS DISTENTION OF THE COLON WITHOUT DILATATION
[2016-11-09] MEDS: KCL 20 MEQ/100 ML IVPREMIX* 20 MEQ/100 ML BAG IV SCH (00:57)
[2016-11-09] MEDS: metroNIDAZOLE IV 500 MG/100ML* 500 MG/100 ML BAG IVPB SCH ×3 (03:50→18:08)
[2016-11-09] MEDS: Ciprofloxacin 400MG IVPREMIX(* 400 MG/200 ML BAG IVPB SCH ×2 (04:05→13:57)
[2016-11-09] MEDS: Omeprazole CAP* 20 MG PO SCH (06:10)
[2016-11-09] MEDS: Heparin VIAL(*) 5000 UNITS/ML VIAL (FIVE THOUSAND) SUBCUT SCH ×3 (06:11→21:46)
[2016-11-09] MEDS: Dicyclomine CAP* 10 MG PO SCH ×3 (07:59→16:13)
[2016-11-09 09:42] LABS: Hematocrit 39 % (35-47); Hemoglobin 12.8 g/dl (12.0-16.0); Mean Corpuscular HGB Conc 33 g/dl (31-36); Mean Corpuscular Hemoglobin 32 pg (27-31); Mean Corpuscular Volume 98 fL (80-97); Mean Platelet Volume 9 um3 (7.4-10.4); Red Blood Count 3.96 10^6/ul (4.0-5.4); Red Cell Distribution Width 16 % (10.5-15); White Blood Count 14.4 10^3/ul (3.5-10.8)
[2016-11-09 09:52] LABS: Albumin 3.6 g/dL (3.2-5.2); BUN/Creatinine Ratio 18.7 (8-20); Calcium 10.4 mg/dL (8.6-10.3); EGFR African American 94.2 (>60); EGFR Non-African American 73.3 (>60); Globulin 2.6 g/dL (2-4); Magnesium 1.9 mg/dL (1.9-2.7); Phosphorus 1.1 mg/dL (2.5-5.0); Potassium 4.9 mmol/L (3.5-5.0); Total Bilirubin 0.8 mg/dL (0.2-1.0); Total Protein 6.2 g/dL (6.4-8.9)
[2016-11-10] MEDS ORDERED: Diltiazem DRIP* 100 MG/100 ML ADDV.BAG IVPB ONE ×3 (01:18→02:00)
[2016-11-10] MEDS ORDERED: Diltiazem IV VIAL* 125 MG in D5W 100 ML BAG* 100 ML IV ONE (01:20)
[2016-11-10] MEDS ORDERED: Heparin DRIP 25,000 UNITS(*) 25,000 UNITS/500 ML BAG IVPB SCH (01:30)
--- NOTE | 2016-11-10 01:30 | PN ---
Progress Note - Progress Note Date of Service: 11/10/16 Note: Nursing called reporting irregular tachycardia as fast as 170s, no known HX of AFIB, patient currently sundowning, confused, & sitting in a chair. She states she feels fine, will not cooperate with having and ECG. Denies chest pain, SOB, N/V, sweating, light-headedness, or palpitations. Telemetry clearly shows AFIB RVR. RR in the high 20s to low 30s saturating in the mid-09s. general: WNWD elderly white female, anxious appearing, but in no overt distress CV: TIR/IR, normal S1S2 lungs: mild diffuse rhonchi with scant end-expiratory wheeze, good to fair aeration, no accessory muscle use abdomen: SNTND, NABS, no HSMM extremities: W&D, trace BLE edema assessment: plan AFIB/RVR, new onset : diltiazem 15mg bolus & 5mg/hr GTT : heparin GTT : D/C heparin SQ : continue monitoring closely
[2016-11-10] MEDS ORDERED: Heparin VIAL(*) 5000 UNITS/ML VIAL (FIVE THOUSAND) IV PRN (01:34)
[2016-11-10] MEDS ORDERED: Diltiazem IV* 5 MG/ML 5 ML VIAL (for loading dose/IV Push) (25 MG) IV SLOW PU ONE (01:45)
[2016-11-10] MEDS: Ciprofloxacin 400MG IVPREMIX(* 400 MG/200 ML BAG IVPB SCH ×2 (02:32→15:06)
[2016-11-10] MEDS: metroNIDAZOLE IV 500 MG/100ML* 500 MG/100 ML BAG IVPB SCH ×3 (04:16→19:34)
[2016-11-10] MEDS: Omeprazole CAP* 20 MG PO SCH (05:44)
[2016-11-10] MEDS: Dicyclomine CAP* 10 MG PO SCH ×3 (08:03→16:51)
[2016-11-10] MEDS ORDERED: Haloperidol INJ IV/IM* 5 MG/ML AMP IV SLOW PU ONE (12:01)
[2016-11-10] MEDS: Diltiazem TAB* 60 MG PO SCH ×3 (12:57→23:37)
[2016-11-10] MEDS: Enoxaparin(*) 60 MG/0.6 ML SYR SUBCUT SCH ×2 (12:57→23:37)
[2016-11-10] MEDS: oxyCODONE TAB* 5 MG TAB PO PRN (16:52)
[2016-11-10] MEDS: Acetaminophen TAB* 325 MG PO PRN (18:13)
[2016-11-10] MEDS ORDERED: Haloperidol INJ IV/IM* 5 MG/ML AMP IV SLOW PU PRN (19:25)
[2016-11-10] MEDS: CMCS: Melatonin (NF) 3 MG TAB PO PRN (23:42)
[2016-11-11] MEDS: Ciprofloxacin 400MG IVPREMIX(* 400 MG/200 ML BAG IVPB SCH ×2 (02:20→16:09)
[2016-11-11] MEDS: metroNIDAZOLE IV 500 MG/100ML* 500 MG/100 ML BAG IVPB SCH ×3 (03:43→18:27)
[2016-11-11] MEDS: Omeprazole CAP* 20 MG PO SCH (05:49)
[2016-11-11] MEDS: Diltiazem TAB* 60 MG PO SCH ×3 (05:49→18:27)
[2016-11-11] MEDS: Albuterol 2.5 MG/3 ML NEB.SOL* (0.083%) INH PRN ×2 (06:09→19:34)
[2016-11-11 08:30] LABS: Hematocrit 35 % (35-47); Hemoglobin 11.5 g/dl (12.0-16.0); Mean Corpuscular HGB Conc 33 g/dl (31-36); Mean Corpuscular Hemoglobin 32 pg (27-31); Mean Corpuscular Volume 95 fL (80-97); Mean Platelet Volume 9 um3 (7.4-10.4); Red Blood Count 3.62 10^6/ul (4.0-5.4); Red Cell Distribution Width 15 % (10.5-15); White Blood Count 7.4 10^3/ul (3.5-10.8)
[2016-11-11 08:31] LABS: BUN/Creatinine Ratio 14.1 (8-20); Calcium 9.8 mg/dL (8.6-10.3); EGFR African American 113.2 (>60); Potassium 3.3 mmol/L (3.5-5.0)
[2016-11-11] MEDS: Dicyclomine CAP* 10 MG PO SCH ×3 (09:14→16:22)
[2016-11-11] MEDS ORDERED: Potassium Chloride LIQUID* 20 MEQ PACKET PO ONE (10:30)
[2016-11-11] MEDS: Enoxaparin(*) 60 MG/0.6 ML SYR SUBCUT SCH (11:56)
[2016-11-11] MEDS ORDERED: Potassium Phosphate IV* 15 MMOLE in NS 0.9% 250 ML* 250 ML IVPB ONE (15:50)
[2016-11-11] MEDS: Acetaminophen TAB* 325 MG PO PRN (18:27)
[2016-11-11] MEDS: CMCS: Melatonin (NF) 3 MG TAB PO PRN (18:28)
[2016-11-12] MEDS: Albuterol 2.5 MG/3 ML NEB.SOL* (0.083%) INH PRN (00:02)
[2016-11-12] MEDS ORDERED: Morphine INJ* 2 MG/ML 1 ML SYRINGE IV ONE ×2 (00:05→02:30)
[2016-11-12] MEDS ORDERED: Morphine INJ* 2 MG/ML 1 ML SYRINGE ONE (00:09)
[2016-11-12] MEDS: Diltiazem TAB* 60 MG PO SCH ×2 (00:19→05:19)
[2016-11-12] MEDS: Enoxaparin(*) 60 MG/0.6 ML SYR SUBCUT SCH (00:27)
[2016-11-12] MEDS ORDERED: Metoprolol Tartrate IV* 1 MG/ML 5 ML VIAL IV ONE (00:56)
[2016-11-12] MEDS: Ciprofloxacin 400MG IVPREMIX(* 400 MG/200 ML BAG IVPB SCH (01:48)
[2016-11-12] MEDS: metroNIDAZOLE IV 500 MG/100ML* 500 MG/100 ML BAG IVPB SCH (02:55)
[2016-11-12] MEDS: Acetaminophen TAB* 325 MG PO PRN (03:54)
[2016-11-12] MEDS: Omeprazole CAP* 20 MG PO SCH (05:19)
--- NOTE | 2016-11-12 06:21 | PN ---
Subjective Date of Service: 11/07/16 Interval History: . Interviewed and examined patient at bedside; Discussed case with Dr. Reid ; Reviewed previous notes and radiology results; + diarrhea --> concerned about obstruction because of bloating. Will order KUB. Also, knee pain now evident after fall. Agreed to order 4 view knee series. + effusion noted but no discoloration or deformity. Passive motion only moderately painful. . Family History: Unchanged from Admission Social History: Unchanged from Admission Past Medical History: Unchanged from Admission Objective Active Medications: . Acetaminophen (Tylenol Tab*) 650 mg PO Q6H PRN PRN Reason: FEVER/PAIN Last Admin: 11/12/16 03:54 Dose: 650 mg Albuterol (Ventolin 2.5 Mg/3 Ml Neb.Tawanna*) 2.5 mg INH Q2H PRN PRN Reason: SOB/WHEEZING Last Admin: 11/12/16 00:02 Dose: 2.5 mg Apixaban (Eliquis*) 5 mg PO BID [facility] Dicyclomine HCl (Bentyl Cap*) 10 mg PO AC [facility] Last Admin: 11/11/16 16:22 Dose: 10 mg Diltiazem HCl (Cardizem Cd Cap*) 240 mg PO DAILY [facility] Haloperidol Lactate (Haldol Inj Iv/Im*) 1 mg IV SLOW PU Q6H PRN PRN Reason: AGITATION Ciprofloxacin/Dextrose (Cipro 400 Mg Ivpremix(*)) 400 mg in 200 mls @ 200 mls/ hr IVPB Q12H [facility] Last Admin: 11/12/16 01:48 Dose: 200 mls/hr Metronidazole/Sodium Chloride (Flagyl 500 Mg Ivpb*) 500 mg in 100 mls @ 100 mls /hr IVPB Q8H [facility] Last Admin: 11/12/16 02:55 Dose: 100 mls/hr Melatonin (Melatonin (Nf)) 3 mg PO BEDTIME PRN; Protocol PRN Reason: Sleep Last Admin: 11/11/16 18:28 Dose: 3 mg Omeprazole (Prilosec Cap*) 20 mg PO DAILY@0600 [facility] Last Admin: 11/12/16 05:19 Dose: 20 mg Ondansetron HCl (Zofran Inj*) 4 mg IV Q6H PRN PRN Reason: NAUSEA Last Admin: 11/12/16 00:19 Dose: 4 mg Oxycodone HCl (Roxycodone Tab*) 5 mg PO Q4H PRN PRN Reason: PAIN Last Admin: 11/10/16 16:52 Dose: 5 mg . Vital Signs 11/11/16 11/11/16 11/11/16 06:30 06:40 06:50 Temperature Pulse Rate Respiratory 19 25 17 Rate Blood Pressure (mmHg) O2 Sat by Pulse Oximetry 11/11/16 11/11/16 11/11/16 07:00 07:10 07:20 Temperature 98.5 F Pulse Rate 89 Respiratory 10 1 18 Rate Blood Pressure 139/57 (mmHg) O2 Sat by Pulse 93 Oximetry 11/11/16 11/11/16 11/11/16 07:30 07:40 07:50 Temperature Pulse Rate Respiratory 16 15 13 Rate Blood Pressure (mmHg) O2 Sat by Pulse Oximetry 11/11/16 11/11/16 11/11/16 08:00 08:10 08:20 Temperature Pulse Rate 93 Respiratory 15 16 8 Rate Blood Pressure (mmHg) O2 Sat by Pulse 97 Oximetry 11/11/16 11/11/16 11/11/16 08:30 08:40 08:50 Temperature Pulse Rate Respiratory 15 8 14 Rate Blood Pressure (mmHg) O2 Sat by Pulse Oximetry 11/11/16 11/11/16 11/11/16 09:00 09:10 09:14 Temperature Pulse Rate Respiratory 14 15 22 Rate Blood Pressure (mmHg) O2 Sat by Pulse Oximetry 11/11/16 11/11/16 11/11/16 09:20 09:30 09:40 Temperature Pulse Rate Respiratory 16 16 18 Rate Blood Pressure (mmHg) O2 Sat by Pulse Oximetry 11/11/16 11/11/16 11/11/16 09:50 10:00 10:10 Temperature Pulse Rate Respiratory 15 17 16 Rate Blood Pressure (mmHg) O2 Sat by Pulse Oximetry 11/11/16 11/11/16 11/11/16 10:20 10:30 10:40 Temperature Pulse Rate Respiratory 16 14 14 Rate Blood Pressure (mmHg) O2 Sat by Pulse Oximetry 11/11/16 11/11/16 11/11/16 10:50 11:00 11:10 Temperature Pulse Rate Respiratory 21 10 12 Rate Blood Pressure (mmHg) O2 Sat by Pulse Oximetry 11/11/16 11/11/16 11/11/16 11:14 11:20 11:30 Temperature Pulse Rate Respiratory 18 25 16 Rate Blood Pressure (mmHg) O2 Sat by Pulse Oximetry 11/11/16 11/11/16 11/11/16 11:37 11:40 11:50 Temperature 98.0 F Pulse Rate 111 Respiratory 18 13 8 Rate Blood Pressure 136/67 (mmHg) O2 Sat by Pulse 95 Oximetry 11/11/16 11/11/16 11/11/16 11:53 12:00 12:10 Temperature Pulse Rate Respiratory 16 11 21 Rate Blood Pressure (mmHg) O2 Sat by Pulse Oximetry 11/11/16 11/11/16 11/11/16 12:20 12:30 12:40 Temperature Pulse Rate Respiratory 12 31 19 Rate Blood Pressure (mmHg) O2 Sat by Pulse Oximetry 11/11/16 11/11/16 11/11/16 12:50 13:00 13:10 Temperature Pulse Rate Respiratory 11 19 10 Rate Blood Pressure (mmHg) O2 Sat by Pulse Oximetry 11/11/16 11/11/16 11/11/16 13:20 13:30 13:40 Temperature Pulse Rate Respiratory 6 9 9 Rate Blood Pressure (mmHg) O2 Sat by Pulse Oximetry 11/11/16 11/11/16 11/11/16 13:50 13:53 14:00 Temperature Pulse Rate Respiratory 11 18 17 Rate Blood Pressure (mmHg) O2 Sat by Pulse Oximetry 11/11/16 11/11/16 11/11/16 14:10 14:20 14:30 Temperature Pulse Rate Respiratory 20 16 22 Rate Blood Pressure (mmHg) O2 Sat by Pulse Oximetry 11/11/16 11/11/16 11/11/16 14:40 14:50 15:00 Temperature Pulse Rate Respiratory 9 13 4 Rate Blood Pressure (mmHg) O2 Sat by Pulse Oximetry 11/11/16 11/11/16 11/11/16 15:10 15:20 15:30 Temperature Pulse Rate Respiratory 28 13 24 Rate Blood Pressure (mmHg) O2 Sat by Pulse Oximetry 11/11/16 11/11/16 11/11/16 15:40 15:50 16:00 Temperature Pulse Rate Respiratory 7 9 16 Rate Blood Pressure (mmHg) O2 Sat by Pulse Oximetry 11/11/16 11/11/16 11/11/16 16:10 16:20 16:22 Temperature Pulse Rate Respiratory 17 21 18 Rate Blood Pressure (mmHg) O2 Sat by Pulse Oximetry 11/11/16 11/11/16 11/11/16 16:30 16:40 16:50 Temperature Pulse Rate Respiratory 20 14 21 Rate Blood Pressure (mmHg) O2 Sat by Pulse Oximetry 11/11/16 11/11/16 11/11/16 17:00 17:10 17:20 Temperature Pulse Rate Respiratory 15 26 11 Rate Blood Pressure (mmHg) O2 Sat by Pulse Oximetry 11/11/16 11/11/16 11/11/16 17:30 17:40 17:50 Temperature Pulse Rate Respiratory 10 14 27 Rate Blood Pressure (mmHg) O2 Sat by Pulse Oximetry 11/11/16 11/11/16 11/11/16 18:00 18:10 18:20 Temperature Pulse Rate Respiratory 19 16 18 Rate Blood Pressure (mmHg) O2 Sat by Pulse Oximetry 11/11/16 11/11/16 11/11/16 18:22 18:30 18:40 Temperature Pulse Rate Respiratory 20 27 8 Rate Blood Pressure (mmHg) O2 Sat by Pulse Oximetry 11/11/16 11/11/16 11/11/16 18:50 19:00 19:10 Temperature Pulse Rate Respiratory 17 20 8 Rate Blood Pressure (mmHg) O2 Sat by Pulse Oximetry 11/11/16 11/11/16 11/11/16 19:20 19:30 19:37 Temperature Pulse Rate Respiratory 14 17 13 Rate Blood Pressure (mmHg) O2 Sat by Pulse Oximetry 11/11/16 11/11/16 11/11/16 19:40 19:50 19:55 Temperature 99.4 F Pulse Rate 38 Respiratory 6 18 16 Rate Blood Pressure 132/60 (mmHg) O2 Sat by Pulse 88 Oximetry 11/11/16 11/11/16 11/11/16 20:00 20:10 20:20 Temperature Pulse Rate 93 Respiratory 21 12 22 Rate Blood Pressure (mmHg) O2 Sat by Pulse 103 Oximetry 11/11/16 11/11/16 11/11/16 20:30 20:40 20:50 Temperature Pulse Rate Respiratory 24 29 22 Rate Blood Pressure (mmHg) O2 Sat by Pulse Oximetry 11/11/16 11/11/16 11/11/16 21:00 21:10 21:20 Temperature Pulse Rate Respiratory 20 19 19 Rate Blood Pressure (mmHg) O2 Sat by Pulse Oximetry 11/11/16 11/11/16 11/11/16 21:30 21:40 21:50 Temperature Pulse Rate Respiratory 25 13 15 Rate Blood Pressure (mmHg) O2 Sat by Pulse Oximetry 11/11/16 11/11/16 11/11/16 22:00 22:10 22:20 Temperature Pulse Rate Respiratory 15 15 7 Rate Blood Pressure (mmHg) O2 Sat by Pulse Oximetry 11/11/16 11/11/16 11/11/16 22:30 22:46 22:50 Temperature Pulse Rate Respiratory 17 24 21 Rate Blood Pressure (mmHg) O2 Sat by Pulse Oximetry 11/11/16 11/11/16 11/11/16 23:00 23:10 23:20 Temperature Pulse Rate Respiratory 13 20 0 Rate Blood Pressure (mmHg) O2 Sat by Pulse Oximetry 11/11/16 11/11/16 11/11/16 23:30 23:40 23:48 Temperature 98.1 F Pulse Rate 100 Respiratory 1 18 20 Rate Blood Pressure 145/70 (mmHg) O2 Sat by Pulse 89 Oximetry 11/11/16 11/12/16 11/12/16 23:50 00:00 00:10 Temperature Pulse Rate Respiratory 14 18 15 Rate Blood Pressure (mmHg) O2 Sat by Pulse Oximetry 11/12/16 11/12/16 11/12/16 00:12 00:20 00:30 Temperature Pulse Rate Respiratory 26 13 35 Rate Blood Pressure (mmHg) O2 Sat by Pulse Oximetry 11/12/16 11/12/16 11/12/16 00:40 00:50 01:00 Temperature Pulse Rate Respiratory 33 22 24 Rate Blood Pressure (mmHg) O2 Sat by Pulse Oximetry 11/12/16 11/12/16 11/12/16 01:10 01:12 01:20 Temperature Pulse Rate Respiratory 0 21 17 Rate Blood Pressure (mmHg) O2 Sat by Pulse Oximetry 11/12/16 11/12/16 11/12/16 01:30 01:40 01:50 Temperature Pulse Rate Respiratory 19 16 10 Rate Blood Pressure (mmHg) O2 Sat by Pulse Oximetry 11/12/16 11/12/16 11/12/16 02:00 02:10 02:20 Temperature Pulse Rate Respiratory 9 13 18 Rate Blood Pressure (mmHg) O2 Sat by Pulse Oximetry 11/12/16 11/12/16 11/12/16 02:30 02:40 02:50 Temperature Pulse Rate Respiratory 22 22 15 Rate Blood Pressure (mmHg) O2 Sat by Pulse Oximetry 11/12/16 11/12/16 11/12/16 02:54 03:00 03:10 Temperature Pulse Rate Respiratory 22 21 11 Rate Blood Pressure (mmHg) O2 Sat by Pulse Oximetry 11/12/16 11/12/16 11/12/16 03:20 03:44 03:54 Temperature 98.2 F Pulse Rate 107 Respiratory 16 20 20 Rate Blood Pressure 130/60 (mmHg) O2 Sat by Pulse 93 Oximetry Oxygen Devices in Use Now: Nasal Cannula Appearance: elderly and frail. family at bedside Ears/Nose/Mouth/Throat: Clear Oropharnyx Neck: NL Appearance and Movements; NL JVP Respiratory: Symmetrical Chest Expansion and Respiratory Effort Cardiovascular: NL Sounds; No Murmurs; No JVD Abdominal: NL Sounds; No Tenderness; No Distention Lymphatic: No Cervical Adenopathy Extremities: No Edema, - - R knee effusion, no other deformity. Skin: No Rash or Ulcers Neurological: Alert and Oriented x 3 Lines/Tubes/Other Access: Clean, Dry and Intact Peripheral IV Nutrition: Taking PO's Result Diagrams: 11/11/16 07:54 11/11/16 07:54 Microbiology and Other Data: Microbiology 11/08/16 04:26 Aerobic Blood Culture - Preliminary Blood Venous No Growth Day 4 Anaerobic Blood Culture - Preliminary No Growth Day 4 Blood Culture - Final 11/08/16 00:30 Nasal Screen MRSA (PCR)(MEGA) - Final Nasal Mrsa Negative Assess/Plan/Problems-Billing . Assessment: 85 yo female with acute gastroenteritis with diarrhea. electrolyte derangements noted. Lives in assisted living PAOD s/p failed RLE arterial stent, HTN non-functional L kidney chronic episodic abdominal pain w/ diarrhea CT abd/pel WO read as enteritis and WBCs of 25K Extensive aortic calcifications leads to concern for chronic intestinal ischemia given h/o abdominal pain/diarrhea & known PAOD. - Patient Problems (1) Enteritis Current Visit: Yes Status: Acute Priority: High Code(s): K52.9 - NONINFECTIVE GASTROENTERITIS AND COLITIS, UNSPECIFIED Comment: - cipro/flagyl - NS - quantify diarrhea - KUB to r/o obstruction given bloating (2) PAOD (peripheral arterial occlusive disease) Current Visit: Yes Status: Acute Priority: High Code(s): I77.9 - DISORDER OF ARTERIES AND ARTERIOLES, UNSPECIFIED Comment: - holding BP agents - metoprolol - cozaar - norvasc - ASA (3) Knee pain, right anterior Current Visit: Yes Status: Acute Code(s): M25.561 - PAIN IN RIGHT KNEE Comment: - R Knee X ray ordered - PT ordered (pain not exquisite) - can use voltaren gel as per o/p regimen (4) HTN (hypertension) Current Visit: Yes Status: Acute Priority: High Code(s): I10 - ESSENTIAL ( PRIMARY) HYPERTENSION Comment: - metoprolol - cozaar - norvasc - ? too many agents given PAOD? will follow
--- NOTE | 2016-11-12 06:36 | PN ---
Subjective Date of Service: 11/09/16 Interval History: . denies pain no fevers decreased diarrhea good spirits . Family History: Unchanged from Admission Social History: Unchanged from Admission Past Medical History: Unchanged from Admission Objective Active Medications: Acetaminophen (Tylenol Tab*) 650 mg PO Q6H PRN PRN Reason: FEVER/PAIN Last Admin: 11/12/16 03:54 Dose: 650 mg Albuterol (Ventolin 2.5 Mg/3 Ml Neb.Tawanna*) 2.5 mg INH Q2H PRN PRN Reason: SOB/WHEEZING Last Admin: 11/12/16 00:02 Dose: 2.5 mg Apixaban (Eliquis*) 5 mg PO BID [facility] Aspirin (Aspirin Low Dose Tab*) 81 mg PO DAILY [facility] Dicyclomine HCl (Bentyl Cap*) 10 mg PO AC [facility] Last Admin: 11/11/16 16:22 Dose: 10 mg Diltiazem HCl (Cardizem Cd Cap*) 240 mg PO DAILY [facility] Haloperidol Lactate (Haldol Inj Iv/Im*) 1 mg IV SLOW PU Q6H PRN PRN Reason: AGITATION Ciprofloxacin/Dextrose (Cipro 400 Mg Ivpremix(*)) 400 mg in 200 mls @ 200 mls/ hr IVPB Q12H [facility] Last Admin: 11/12/16 01:48 Dose: 200 mls/hr Metronidazole/Sodium Chloride (Flagyl 500 Mg Ivpb*) 500 mg in 100 mls @ 100 mls /hr IVPB Q8H [facility] Last Admin: 11/12/16 02:55 Dose: 100 mls/hr Losartan Potassium (Cozaar Tab*) 50 mg PO DAILY [facility] Melatonin (Melatonin (Nf)) 3 mg PO BEDTIME PRN; Protocol PRN Reason: Sleep Last Admin: 11/11/16 18:28 Dose: 3 mg Metoprolol Succinate (Toprol Xl Tab*) 25 mg PO DAILY [facility] Non-Formulary Medication (Omeprazole Cap*) 20 mg PO DAILY [facility] Omeprazole (Prilosec Cap*) 20 mg PO DAILY@0600 [facility] Last Admin: 11/12/16 05:19 Dose: 20 mg Ondansetron HCl (Zofran Inj*) 4 mg IV Q6H PRN PRN Reason: NAUSEA Last Admin: 11/12/16 00:19 Dose: 4 mg Oxycodone HCl (Roxycodone Tab*) 5 mg PO Q4H PRN PRN Reason: PAIN Last Admin: 11/10/16 16:52 Dose: 5 mg Vital Signs 11/11/16 11/11/16 11/11/16 06:40 06:50 07:00 Temperature Pulse Rate Respiratory 25 17 10 Rate Blood Pressure (mmHg) O2 Sat by Pulse Oximetry 11/11/16 11/11/16 11/11/16 07:10 07:20 07:30 Temperature 98.5 F Pulse Rate 89 Respiratory 1 18 16 Rate Blood Pressure 139/57 (mmHg) O2 Sat by Pulse 93 Oximetry Oxygen Devices in Use Now: Nasal Cannula Appearance: elderly and frail Eyes: No Scleral Icterus Ears/Nose/Mouth/Throat: Clear Oropharnyx Neck: NL Appearance and Movements; NL JVP Respiratory: Symmetrical Chest Expansion and Respiratory Effort Cardiovascular: NL Sounds; No Murmurs; No JVD Abdominal: NL Sounds; No Tenderness; No Distention Lymphatic: No Cervical Adenopathy Extremities: No Edema, - - R knee les spainful. can walk easily Skin: No Rash or Ulcers, - - dry intact Neurological: Alert and Oriented x 3 Lines/Tubes/Other Access: Clean, Dry and Intact Peripheral IV Nutrition: Taking PO's Result Diagrams: 11/11/16 07:54 11/11/16 07:54 Additional Lab and Data: . Microbiology and Other Data: Microbiology 11/08/16 04:26 Aerobic Blood Culture - Preliminary Blood Venous No Growth Day 4 Anaerobic Blood Culture - Preliminary No Growth Day 4 Blood Culture - Final 11/08/16 00:30 Nasal Screen MRSA (PCR)([facility]) - Final Nasal Mrsa Negative Assess/Plan/Problems-Billing . Assessment: 85 yo female with acute gastroenteritis with diarrhea. electrolyte derangements noted. 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 . - Patient Problems (1) Enteritis Current Visit: Yes Status: Acute Priority: High Code(s): K52.9 - NONINFECTIVE GASTROENTERITIS AND COLITIS, UNSPECIFIED Comment: - cipro/flagyl - NS - quantify diarrhea --> has essentially stopped; wbc decreasing. - KUB to r/o obstruction given bloating --> no OBSTRUCTION (11/08) (2) PAOD (peripheral arterial occlusive disease) Current Visit: Yes Status: Acute Priority: High Code(s): I77.9 - DISORDER OF ARTERIES AND ARTERIOLES, UNSPECIFIED Comment: - holding BP agents - metoprolol - cozaar - norvasc - ASA (3) Knee pain, right anterior Current Visit: Yes Status: Acute Code(s): M25.561 - PAIN IN RIGHT KNEE Comment: - R Knee X ray ordered --> no fracture. + knee effusion (known on exam). - PT ordered (pain not exquisite) - can use voltaren gel as per o/p regimen (4) HTN (hypertension) Current Visit: Yes Status: Acute Priority: High Code(s): I10 - ESSENTIAL ( PRIMARY) HYPERTENSION Comment: - metoprolol (will restart tomorrow) - cozaar (will restart tomorrow) - norvasc (hold) - ? too many agents given PAOD? likely dc norvasc
--- NOTE | 2016-11-12 06:43 | PN ---
Subjective Date of Service: 11/10/16 Interval History: . bad night sleep new AF with RVR --> heparin and diltiazem gtt. Pt upset and almost delerious as a result. family attempting to calm her down. can't go to [place] like this --> will explore STR options. try to dc heparin (lovenox) and convedrt dilt gtt to oral. will dc norvasc wait to add back metoprolol and cozaar. . Family History: Unchanged from Admission Social History: Unchanged from Admission Past Medical History: Unchanged from Admission Objective Active Medications: . Acetaminophen (Tylenol Tab*) 650 mg PO Q6H PRN PRN Reason: FEVER/PAIN Last Admin: 11/12/16 03:54 Dose: 650 mg Albuterol (Ventolin 2.5 Mg/3 Ml Neb.Tawanna*) 2.5 mg INH Q2H PRN PRN Reason: SOB/WHEEZING Last Admin: 11/12/16 00:02 Dose: 2.5 mg Apixaban (Eliquis*) 5 mg PO BID [facility] Aspirin (Aspirin Low Dose Tab*) 81 mg PO DAILY [facility] Dicyclomine HCl (Bentyl Cap*) 10 mg PO AC [facility] Last Admin: 11/11/16 16:22 Dose: 10 mg Diltiazem HCl (Cardizem Cd Cap*) 240 mg PO DAILY [facility] Haloperidol Lactate (Haldol Inj Iv/Im*) 1 mg IV SLOW PU Q6H PRN PRN Reason: AGITATION Ciprofloxacin/Dextrose (Cipro 400 Mg Ivpremix(*)) 400 mg in 200 mls @ 200 mls/ hr IVPB Q12H [facility] Last Admin: 11/12/16 01:48 Dose: 200 mls/hr Metronidazole/Sodium Chloride (Flagyl 500 Mg Ivpb*) 500 mg in 100 mls @ 100 mls /hr IVPB Q8H [facility] Last Admin: 11/12/16 02:55 Dose: 100 mls/hr Losartan Potassium (Cozaar Tab*) 50 mg PO DAILY [facility] Melatonin (Melatonin (Nf)) 3 mg PO BEDTIME PRN; Protocol PRN Reason: Sleep Last Admin: 11/11/16 18:28 Dose: 3 mg Metoprolol Succinate (Toprol Xl Tab*) 25 mg PO DAILY [facility] Omeprazole (Prilosec Cap*) 20 mg PO DAILY@0600 [facility] Last Admin: 11/12/16 05:19 Dose: 20 mg Ondansetron HCl (Zofran Inj*) 4 mg IV Q6H PRN PRN Reason: NAUSEA Last Admin: 11/12/16 00:19 Dose: 4 mg Oxycodone HCl (Roxycodone Tab*) 5 mg PO Q4H PRN PRN Reason: PAIN Last Admin: 11/10/16 16:52 Dose: 5 mg . Vital Signs 11/11/16 11/11/16 11/11/16 06:40 06:50 07:00 Temperature Pulse Rate Respiratory 25 17 10 Rate Blood Pressure (mmHg) O2 Sat by Pulse Oximetry 11/11/16 11/11/16 11/11/16 07:10 07:20 07:30 Temperature 98.5 F Pulse Rate 89 Respiratory 1 18 16 Rate Blood Pressure 139/57 (mmHg) O2 Sat by Pulse 93 Oximetry Oxygen Devices in Use Now: Nasal Cannula Appearance: upset emotionally by new AF and disturbances at night. Ears/Nose/Mouth/Throat: Clear Oropharnyx Neck: NL Appearance and Movements; NL JVP Respiratory: Symmetrical Chest Expansion and Respiratory Effort Cardiovascular: NL Sounds; No Murmurs; No JVD, - - irr irr rhythm, rvr (low 100' s) Abdominal: NL Sounds; No Tenderness; No Distention Extremities: No Edema Skin: No Rash or Ulcers Neurological: Alert and Oriented x 3 Lines/Tubes/Other Access: Clean, Dry and Intact Peripheral IV Result Diagrams: 11/11/16 07:54 11/11/16 07:54 Additional Lab and Data: . Microbiology and Other Data: Microbiology 11/08/16 04:26 Aerobic Blood Culture - Preliminary Blood Venous No Growth Day 4 Anaerobic Blood Culture - Preliminary No Growth Day 4 Blood Culture - Final 11/08/16 00:30 Nasal Screen MRSA (PCR)([facility]) - Final Nasal Mrsa Negative Assess/Plan/Problems-Billing . Assessment: 85 yo female with acute gastroenteritis with diarrhea. electrolyte derangements noted. 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 . - Patient Problems (1) Enteritis Current Visit: Yes Status: Acute Priority: High Code(s): K52.9 - NONINFECTIVE GASTROENTERITIS AND COLITIS, UNSPECIFIED Comment: - cipro/flagyl - NS - quantify diarrhea --> has essentially stopped; wbc decreasing. - KUB to r/o obstruction given bloating --> no OBSTRUCTION (11/08) (2) Atrial fibrillation with rapid ventricular response Current Visit: Yes Status: Acute Priority: High Code(s): I48.91 - UNSPECIFIED ATRIAL FIBRILLATION Comment: - IV heparin started --> lovenox - IV diltiazem --> oral dilt 60 q 6. - BP ok. - will not pursue rhythm control strategy; rate control + anticoagulation instead. - trop neg (3) PAOD (peripheral arterial occlusive disease) Current Visit: Yes Status: Acute Priority: High Code(s): I77.9 - DISORDER OF ARTERIES AND ARTERIOLES, UNSPECIFIED Comment: - holding BP agents - metoprolol - cozaar - norvasc - ASA (4) Knee pain, right anterior Current Visit: Yes Status: Acute Code(s): M25.561 - PAIN IN RIGHT KNEE Comment: - R Knee X ray ordered --> no fracture. + knee effusion (known on exam). - PT ordered (pain not exquisite) - can use voltaren gel as per o/p regimen (5) HTN (hypertension) Current Visit: Yes Status: Acute Priority: High Code(s): I10 - ESSENTIAL ( PRIMARY) HYPERTENSION Comment: - metoprolol (will restart tomorrow) - cozaar (will restart tomorrow) - norvasc (hold) - ? too many agents given PAOD? likely dc norvasc
[2016-11-12 06:47] LABS: Hematocrit 36 % (35-47); Mean Corpuscular HGB Conc 33 g/dl (31-36); Mean Corpuscular Hemoglobin 32 pg (27-31); Mean Corpuscular Volume 96 fL (80-97); Mean Platelet Volume 8 um3 (7.4-10.4); Red Blood Count 3.78 10^6/ul (4.0-5.4); Red Cell Distribution Width 16 % (10.5-15); White Blood Count 14.6 10^3/ul (3.5-10.8)
--- NOTE | 2016-11-12 06:48 | PN ---
Subjective Date of Service: 11/11/16 Interval History: . much better spirits today both her family and I think she could plausibly go back to [place] if she stays like this converted heparin to lovenox --> have decided for oral eliquis beyond dc oral dilt 60 q 6 seems to be achieving good rate control...convert to CD formulation tomorrow. cancel plans for STR unless patient regresses normal diet --> no diarrhea walking well with PT. Family History: Unchanged from Admission Social History: Unchanged from Admission Past Medical History: Unchanged from Admission Objective Active Medications: . Acetaminophen (Tylenol Tab*) 650 mg PO Q6H PRN PRN Reason: FEVER/PAIN Last Admin: 11/12/16 03:54 Dose: 650 mg Albuterol (Ventolin 2.5 Mg/3 Ml Neb.Tawanna*) 2.5 mg INH Q2H PRN PRN Reason: SOB/WHEEZING Last Admin: 11/12/16 00:02 Dose: 2.5 mg Apixaban (Eliquis*) 5 mg PO BID [facility] Aspirin (Aspirin Low Dose Tab*) 81 mg PO DAILY [facility] Dicyclomine HCl (Bentyl Cap*) 10 mg PO AC [facility] Last Admin: 11/11/16 16:22 Dose: 10 mg Diltiazem HCl (Cardizem Cd Cap*) 240 mg PO DAILY [facility] Haloperidol Lactate (Haldol Inj Iv/Im*) 1 mg IV SLOW PU Q6H PRN PRN Reason: AGITATION Ciprofloxacin/Dextrose (Cipro 400 Mg Ivpremix(*)) 400 mg in 200 mls @ 200 mls/ hr IVPB Q12H [facility] Last Admin: 11/12/16 01:48 Dose: 200 mls/hr Metronidazole/Sodium Chloride (Flagyl 500 Mg Ivpb*) 500 mg in 100 mls @ 100 mls /hr IVPB Q8H [facility] Last Admin: 11/12/16 02:55 Dose: 100 mls/hr Losartan Potassium (Cozaar Tab*) 50 mg PO DAILY [facility] Melatonin (Melatonin (Nf)) 3 mg PO BEDTIME PRN; Protocol PRN Reason: Sleep Last Admin: 11/11/16 18:28 Dose: 3 mg Metoprolol Succinate (Toprol Xl Tab*) 25 mg PO DAILY [facility] Omeprazole (Prilosec Cap*) 20 mg PO DAILY@0600 [facility] Last Admin: 11/12/16 05:19 Dose: 20 mg Ondansetron HCl (Zofran Inj*) 4 mg IV Q6H PRN PRN Reason: NAUSEA Last Admin: 11/12/16 00:19 Dose: 4 mg Oxycodone HCl (Roxycodone Tab*) 5 mg PO Q4H PRN PRN Reason: PAIN Last Admin: 11/10/16 16:52 Dose: 5 mg . Vital Signs 11/11/16 11/11/16 11/11/16 06:50 07:00 07:10 Temperature Pulse Rate Respiratory 17 10 1 Rate Blood Pressure (mmHg) O2 Sat by Pulse Oximetry 11/11/16 11/11/16 11/11/16 07:20 07:30 07:40 Temperature 98.5 F Pulse Rate 89 Respiratory 18 16 15 Rate Blood Pressure 139/57 (mmHg) O2 Sat by Pulse 93 Oximetry Oxygen Devices in Use Now: Nasal Cannula Appearance: NAD; elderly and frail. Eyes: No Scleral Icterus Ears/Nose/Mouth/Throat: Clear Oropharnyx Neck: Trachea Midline Respiratory: Symmetrical Chest Expansion and Respiratory Effort Cardiovascular: NL Sounds; No Murmurs; No JVD Abdominal: NL Sounds; No Tenderness; No Distention Extremities: No Edema Skin: No Rash or Ulcers Neurological: Alert and Oriented x 3 Lines/Tubes/Other Access: Clean, Dry and Intact Peripheral IV Nutrition: Taking PO's Result Diagrams: 11/11/16 07:54 11/11/16 07:54 Additional Lab and Data: . Microbiology and Other Data: Microbiology 11/08/16 04:26 Aerobic Blood Culture - Preliminary Blood Venous No Growth Day 4 Anaerobic Blood Culture - Preliminary No Growth Day 4 Blood Culture - Final 11/08/16 00:30 Nasal Screen MRSA (PCR)(MEGA) - Final Nasal Mrsa Negative Assess/Plan/Problems-Billing . Assessment: 85 yo female with acute gastroenteritis with diarrhea. electrolyte derangements noted. New onset AF 11/10/16 (early AM) --> now rate controlled and anticoagulated. 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 . - Patient Problems (1) Enteritis Current Visit: Yes Status: Acute Priority: High Code(s): K52.9 - NONINFECTIVE GASTROENTERITIS AND COLITIS, UNSPECIFIED Comment: - cipro/flagyl - day #5... - NS stopped. - quantify diarrhea --> has essentially stopped; wbc decreasing, normal - KUB to r/o obstruction given bloating --> no OBSTRUCTION (11/08) - not sure needs abx after dc...6-7 days likely sufficient. (2) Atrial fibrillation with rapid ventricular response Current Visit: Yes Status: Acute Priority: High Code(s): I48.91 - UNSPECIFIED ATRIAL FIBRILLATION Comment: - IV heparin started --> lovenox --> Eliquis - IV diltiazem --> oral dilt 60 q 6. --> concert to 240 mg PO daily (CD form). - BP ok...can add metoprolol and cozaar for PAOD benefit, but ? need... - will not pursue rhythm control strategy; rate control + anticoagulation instead. - trop neg (3) PAOD (peripheral arterial occlusive disease) Current Visit: Yes Status: Acute Priority: High Code(s): I77.9 - DISORDER OF ARTERIES AND ARTERIOLES, UNSPECIFIED Comment: restart: - metoprolol 25 - cozaar 50 discontinue: - norvasc continue: - ASA new: diltiazem 240 mg PO daily (4) Knee pain, right anterior Current Visit: Yes Status: Acute Code(s): M25.561 - PAIN IN RIGHT KNEE Comment: - R Knee X ray ordered --> no fracture. + knee effusion (known on exam). - PT ordered (pain not exquisite) - can use voltaren gel as per o/p regimen (5) HTN (hypertension) Current Visit: Yes Status: Acute Priority: High Code(s): I10 - ESSENTIAL ( PRIMARY) HYPERTENSION Comment: - metoprolol - cozaar - diltiazem - ? too many agents given PAOD? likely dc norvasc
[2016-11-12 07:19] LABS: BUN/Creatinine Ratio 13.3 (8-20); Calcium 10.1 mg/dL (8.6-10.3); EGFR African American 94.2 (>60); EGFR Non-African American 73.3 (>60); Magnesium 1.1 mg/dL (1.9-2.7); Phosphorus 2.8 mg/dL (2.5-5.0); Potassium 4.4 mmol/L (3.5-5.0)
[2016-11-12] MEDS ORDERED: OMEPRAZOLE 20 MG PO SCH (09:00)
[2016-11-12] MEDS: Dicyclomine CAP* 10 MG PO SCH ×3 (09:02→17:11)
[2016-11-12] MEDS: Metoprolol Succinate XL TAB* 25 MG PO SCH (09:02)
[2016-11-12] MEDS: Diltiazem CD CAP* 240 MG PO SCH (09:02)
[2016-11-12] MEDS: Losartan TAB* 25 MG PO SCH (09:02)
[2016-11-12] MEDS: Aspirin Low Dose CHEW TAB* 81 MG PO SCH (09:04)
[2016-11-12] MEDS: Apixaban* 5 MG TAB PO SCH ×2 (09:04→21:55)
[2016-11-12] MEDS ORDERED: ALPRAZolam TAB* 0.25 MG PO PRN (09:26)
[2016-11-12] MEDS ORDERED: Mirtazapine TAB* 15 MG PO PRN (09:26)
--- NOTE | 2016-11-12 09:41 | PN ---
Subjective Date of Service: 11/12/16 Interval History: She denies SOB. She quit smoking 1990, hasd smoked for about 50 years. Chronic loose stools since her cholecystectomy in 2010, at her baseline in BM frequency now. Appetite OK. Walked well at [place]. Family History: Unchanged from Admission Social History: Unchanged from Admission Past Medical History: Unchanged from Admission Objective Active Medications: Acetaminophen (Tylenol Tab*) 650 mg PO Q6H PRN PRN Reason: FEVER/PAIN Last Admin: 11/12/16 03:54 Dose: 650 mg Albuterol (Ventolin 2.5 Mg/3 Ml Neb.Tawanna*) 2.5 mg INH Q2H PRN PRN Reason: SOB/WHEEZING Last Admin: 11/12/16 00:02 Dose: 2.5 mg Alprazolam (Xanax Tab*) 0.125 mg PO Q8H PRN PRN Reason: ANXIETY Apixaban (Eliquis*) 5 mg PO BID [facility] Last Admin: 11/12/16 09:04 Dose: 5 mg Aspirin (Aspirin Low Dose Tab*) 81 mg PO DAILY [facility] Last Admin: 11/12/16 09:04 Dose: 81 mg Ciprofloxacin (Cipro Tab*) 500 mg PO Q12HR [facility] Dicyclomine HCl (Bentyl Cap*) 10 mg PO AC [facility] Last Admin: 11/12/16 09:02 Dose: 10 mg Diltiazem HCl (Cardizem Cd Cap*) 240 mg PO DAILY [facility] Last Admin: 11/12/16 09:02 Dose: 240 mg Losartan Potassium (Cozaar Tab*) 50 mg PO DAILY [facility] Last Admin: 11/12/16 09:02 Dose: 50 mg Metoprolol Succinate (Toprol Xl Tab*) 25 mg PO DAILY [facility] Last Admin: 11/12/16 09:02 Dose: 25 mg Metronidazole (Flagyl Tab*) 500 mg PO TID [facility] Mirtazapine (Remeron Tab*) 7.5 mg PO BEDTIME PRN PRN Reason: SLEEP Ondansetron HCl (Zofran Inj*) 4 mg IV Q6H PRN PRN Reason: NAUSEA Last Admin: 11/12/16 00:19 Dose: 4 mg Vital Signs 11/11/16 11/11/16 11/11/16 09:40 09:50 10:00 Temperature Pulse Rate Respiratory 18 15 17 Rate Blood Pressure (mmHg) O2 Sat by Pulse Oximetry 11/11/16 11/11/16 11/11/16 10:10 10:20 10:30 Temperature Pulse Rate Respiratory 16 16 14 Rate Blood Pressure (mmHg) O2 Sat by Pulse Oximetry 11/11/16 11/11/16 11/11/16 10:40 10:50 11:00 Temperature Pulse Rate Respiratory 14 21 10 Rate Blood Pressure (mmHg) O2 Sat by Pulse Oximetry 11/11/16 11/11/16 11/11/16 11:10 11:14 11:20 Temperature Pulse Rate Respiratory 12 18 25 Rate Blood Pressure (mmHg) O2 Sat by Pulse Oximetry 11/11/16 11/11/16 11/11/16 11:30 11:37 11:40 Temperature 98.0 F Pulse Rate 111 Respiratory 16 18 13 Rate Blood Pressure 136/67 (mmHg) O2 Sat by Pulse 95 Oximetry 11/11/16 11/11/16 11/11/16 11:50 11:53 12:00 Temperature Pulse Rate Respiratory 8 16 11 Rate Blood Pressure (mmHg) O2 Sat by Pulse Oximetry 11/11/16 11/11/16 11/11/16 12:10 12:20 12:30 Temperature Pulse Rate Respiratory 21 12 31 Rate Blood Pressure (mmHg) O2 Sat by Pulse Oximetry 11/11/16 11/11/16 11/11/16 12:40 12:50 13:00 Temperature Pulse Rate Respiratory 19 11 19 Rate Blood Pressure (mmHg) O2 Sat by Pulse Oximetry 11/11/16 11/11/16 11/11/16 13:10 13:20 13:30 Temperature Pulse Rate Respiratory 10 6 9 Rate Blood Pressure (mmHg) O2 Sat by Pulse Oximetry 11/11/16 11/11/16 11/11/16 13:40 13:50 13:53 Temperature Pulse Rate Respiratory 9 11 18 Rate Blood Pressure (mmHg) O2 Sat by Pulse Oximetry 11/11/16 11/11/16 11/11/16 14:00 14:10 14:20 Temperature Pulse Rate Respiratory 17 20 16 Rate Blood Pressure (mmHg) O2 Sat by Pulse Oximetry 11/11/16 11/11/16 11/11/16 14:30 14:40 14:50 Temperature Pulse Rate Respiratory 22 9 13 Rate Blood Pressure (mmHg) O2 Sat by Pulse Oximetry 11/11/16 11/11/1617 15:00 15:10 15:20 Temperature Pulse Rate Respiratory 4 28 13 Rate Blood Pressure (mmHg) O2 Sat by Pulse Oximetry 11/11/16 11/11/16 11/11/16 15:30 15:40 15:50 Temperature Pulse Rate Respiratory 24 7 9 Rate Blood Pressure (mmHg) O2 Sat by Pulse Oximetry 11/11/16 11/11/16 11/11/16 16:00 16:10 16:20 Temperature Pulse Rate Respiratory 16 17 21 Rate Blood Pressure (mmHg) O2 Sat by Pulse Oximetry 11/11/16 11/11/16 11/11/16 16:22 16:30 16:40 Temperature Pulse Rate Respiratory 18 20 14 Rate Blood Pressure (mmHg) O2 Sat by Pulse Oximetry 11/11/16 11/11/16 11/11/16 16:50 17:00 17:10 Temperature Pulse Rate Respiratory 21 15 26 Rate Blood Pressure (mmHg) O2 Sat by Pulse Oximetry 11/11/16 11/11/16 11/11/16 17:20 17:30 17:40 Temperature Pulse Rate Respiratory 11 10 14 Rate Blood Pressure (mmHg) O2 Sat by Pulse Oximetry 11/11/16 11/11/16 11/11/16 17:50 18:00 18:10 Temperature Pulse Rate Respiratory 27 19 16 Rate Blood Pressure (mmHg) O2 Sat by Pulse Oximetry 11/11/16 11/11/16 11/11/16 18:20 18:22 18:30 Temperature Pulse Rate Respiratory 18 20 27 Rate Blood Pressure (mmHg) O2 Sat by Pulse Oximetry 11/11/16 11/11/16 11/11/16 18:40 18:50 19:00 Temperature Pulse Rate Respiratory 8 17 20 Rate Blood Pressure (mmHg) O2 Sat by Pulse Oximetry 11/11/16 11/11/16 11/11/16 19:10 19:20 19:30 Temperature Pulse Rate Respiratory 8 14 17 Rate Blood Pressure (mmHg) O2 Sat by Pulse Oximetry 11/11/16 11/11/16 11/11/16 19:37 19:40 19:50 Temperature Pulse Rate Respiratory 13 6 18 Rate Blood Pressure (mmHg) O2 Sat by Pulse Oximetry 11/11/16 11/11/16 11/11/16 19:55 20:00 20:10 Temperature 99.4 F Pulse Rate 38 93 Respiratory 16 21 12 Rate Blood Pressure 132/60 (mmHg) O2 Sat by Pulse 88 103 Oximetry 11/11/16 11/11/16 11/11/16 20:20 20:30 20:40 Temperature Pulse Rate Respiratory 22 24 29 Rate Blood Pressure (mmHg) O2 Sat by Pulse Oximetry 11/11/16 11/11/16 11/11/16 20:50 21:00 21:10 Temperature Pulse Rate Respiratory 22 20 19 Rate Blood Pressure (mmHg) O2 Sat by Pulse Oximetry 11/11/16 11/11/16 11/11/16 21:20 21:30 21:40 Temperature Pulse Rate Respiratory 19 25 13 Rate Blood Pressure (mmHg) O2 Sat by Pulse Oximetry 11/11/16 11/11/16 11/11/16 21:50 22:00 22:10 Temperature Pulse Rate Respiratory 15 15 15 Rate Blood Pressure (mmHg) O2 Sat by Pulse Oximetry 11/11/16 11/11/16 11/11/16 22:20 22:30 22:46 Temperature Pulse Rate Respiratory 7 17 24 Rate Blood Pressure (mmHg) O2 Sat by Pulse Oximetry 11/11/16 11/11/16 11/11/16 22:50 23:00 23:10 Temperature Pulse Rate Respiratory 21 13 20 Rate Blood Pressure (mmHg) O2 Sat by Pulse Oximetry 11/11/16 11/11/16 11/11/16 23:20 23:30 23:40 Temperature Pulse Rate Respiratory 0 1 18 Rate Blood Pressure (mmHg) O2 Sat by Pulse Oximetry 11/11/16 11/11/16 11/12/16 23:48 23:50 00:00 Temperature 98.1 F Pulse Rate 100 Respiratory 20 14 18 Rate Blood Pressure 145/70 (mmHg) O2 Sat by Pulse 89 Oximetry 11/12/16 11/12/16 11/12/16 00:10 00:12 00:20 Temperature Pulse Rate Respiratory 15 26 13 Rate Blood Pressure (mmHg) O2 Sat by Pulse Oximetry 11/12/16 11/12/16 11/12/16 00:30 00:40 00:50 Temperature Pulse Rate Respiratory 35 33 22 Rate Blood Pressure (mmHg) O2 Sat by Pulse Oximetry 11/12/16 11/12/16 11/12/16 01:00 01:10 01:12 Temperature Pulse Rate Respiratory 24 0 21 Rate Blood Pressure (mmHg) O2 Sat by Pulse Oximetry 11/12/16 11/12/16 11/12/16 01:20 01:30 01:40 Temperature Pulse Rate Respiratory 17 19 16 Rate Blood Pressure (mmHg) O2 Sat by Pulse Oximetry 11/12/16 11/12/16 11/12/16 01:50 02:00 02:10 Temperature Pulse Rate Respiratory 10 9 13 Rate Blood Pressure (mmHg) O2 Sat by Pulse Oximetry 11/12/16 11/12/16 11/12/16 02:20 02:30 02:40 Temperature Pulse Rate Respiratory 18 22 22 Rate Blood Pressure (mmHg) O2 Sat by Pulse Oximetry 11/12/16 11/12/16 11/12/16 02:50 02:54 03:00 Temperature Pulse Rate Respiratory 15 22 21 Rate Blood Pressure (mmHg) O2 Sat by Pulse Oximetry 11/12/16 11/12/16 11/12/16 03:10 03:20 03:30 Temperature Pulse Rate Respiratory 11 16 18 Rate Blood Pressure (mmHg) O2 Sat by Pulse Oximetry 11/12/16 11/12/16 11/12/16 03:40 03:44 03:50 Temperature 98.2 F Pulse Rate 107 Respiratory 12 20 11 Rate Blood Pressure 130/60 (mmHg) O2 Sat by Pulse 93 Oximetry 11/12/16 11/12/16 11/12/16 03:54 04:00 04:10 Temperature Pulse Rate Respiratory 20 29 23 Rate Blood Pressure (mmHg) O2 Sat by Pulse Oximetry 11/12/16 11/12/16 11/12/16 04:20 04:30 04:40 Temperature Pulse Rate Respiratory 10 16 18 Rate Blood Pressure (mmHg) O2 Sat by Pulse Oximetry 11/12/16 11/12/16 11/12/16 04:50 05:00 05:10 Temperature Pulse Rate Respiratory 15 13 13 Rate Blood Pressure (mmHg) O2 Sat by Pulse Oximetry 11/12/16 11/12/16 11/12/16 05:20 05:30 05:40 Temperature Pulse Rate Respiratory 15 19 17 Rate Blood Pressure (mmHg) O2 Sat by Pulse Oximetry 11/12/16 11/12/16 11/12/16 05:50 06:00 06:10 Temperature Pulse Rate Respiratory 18 20 18 Rate Blood Pressure (mmHg) O2 Sat by Pulse Oximetry 11/12/16 11/12/16 11/12/16 06:20 06:30 06:40 Temperature Pulse Rate Respiratory 17 12 15 Rate Blood Pressure (mmHg) O2 Sat by Pulse Oximetry 11/12/16 11/12/16 11/12/16 06:50 07:00 07:10 Temperature Pulse Rate Respiratory 8 0 21 Rate Blood Pressure (mmHg) O2 Sat by Pulse Oximetry 11/12/16 11/12/16 11/12/16 07:19 07:20 07:30 Temperature Pulse Rate 106 Respiratory 22 16 15 Rate Blood Pressure 149/70 (mmHg) O2 Sat by Pulse 92 Oximetry 11/12/16 11/12/16 11/12/16 07:40 07:50 08:00 Temperature Pulse Rate Respiratory 21 23 8 Rate Blood Pressure (mmHg) O2 Sat by Pulse Oximetry 11/12/16 11/12/16 11/12/16 08:10 08:20 08:30 Temperature Pulse Rate Respiratory 13 17 24 Rate Blood Pressure (mmHg) O2 Sat by Pulse Oximetry 11/12/16 11/12/16 11/12/16 08:42 08:50 08:54 Temperature Pulse Rate 107 Respiratory 18 18 22 Rate Blood Pressure (mmHg) O2 Sat by Pulse 93 Oximetry 11/12/16 11/12/16 11/12/16 08:55 09:00 09:02 Temperature Pulse Rate Respiratory 18 22 Rate Blood Pressure (mmHg) O2 Sat by Pulse 93 Oximetry 11/12/16 09:10 Temperature Pulse Rate Respiratory 19 Rate Blood Pressure (mmHg) O2 Sat by Pulse Oximetry Oxygen Devices in Use Now: Nasal Cannula Appearance: Alert, in a chair. In good spirits. Looks comfortable. Eyes: No Scleral Icterus Ears/Nose/Mouth/Throat: Clear Oropharnyx, Mucous Membranes Moist Neck: NL Appearance and Movements; NL JVP, No Thyroid Enlargement, Masses Respiratory: Symmetrical Chest Expansion and Respiratory Effort, Clear to Auscultation, Clear to Percussion Cardiovascular: RRR, No Edema, - - 3-4/6 systolic murmur RSB Abdominal: NL Sounds; No Tenderness; No Distention, No Hepatosplenomegaly, - Extremities: No Edema, No Clubbing, Cyanosis, - Skin: No Rash or Ulcers, No Nodules or Sclerosis Neurological: Alert and Oriented x 3, NL Sensation - Some decrease in memory, Result Diagrams: 11/12/16 06:39 11/12/16 06:36 Additional Lab and Data: . Microbiology and Other Data: Microbiology 11/08/16 04:26 Aerobic Blood Culture - Preliminary Blood Venous No Growth Day 4 Anaerobic Blood Culture - Preliminary No Growth Day 4 Blood Culture - Final 11/08/16 00:30 Nasal Screen MRSA (PCR)([facility]) - Final Nasal Mrsa Negative Assess/Plan/Problems-Billing . Assessment: 85 yo female with acute gastroenteritis with diarrhea. electrolyte derangements noted. New onset AF 11/10/16 (early AM) --> now rate controlled and anticoagulated. 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 . - Patient Problems (1) Atrial fibrillation with rapid ventricular response Current Visit: Yes Status: Acute Priority: High Code(s): I48.91 - UNSPECIFIED ATRIAL FIBRILLATION SNOMED Code(s): 027162227097922 Comment: Adequate rate control. Chronic/recurrent. Followed by Dr. Muller. Continue Eliquis, diltiazem CD. (2) Valvular heart disease Current Visit: Yes Status: Acute Comment: By auscultation has aortic stenosis, which daughter confirms at the bedside. Fup Dr. Muller. (3) Enteritis Current Visit: Yes Status: Acute Priority: High Code(s): K52.9 - NONINFECTIVE GASTROENTERITIS AND COLITIS, UNSPECIFIED SNOMED Code(s): 87137414 Comment: At her baseline with BM's. Not clear why WBC up. Family expects antibiotics through Sunday, convert to PO. Blood C&S neg. No stool C&S sent. (4) HTN (hypertension) Current Visit: Yes Status: Acute Priority: High Code(s): I10 - ESSENTIAL ( PRIMARY) HYPERTENSION SNOMED Code(s): 78925673 Comment: Continue losartan, diltiazem, metoprolol. Amlodipine stopped. (5) PAOD (peripheral arterial occlusive disease) Current Visit: Yes Status: Acute Priority: High Code(s): I77.9 - DISORDER OF ARTERIES AND ARTERIOLES, UNSPECIFIED SNOMED Code(s): 436954911 Comment: Not symptomatic at present.
[2016-11-12] MEDS ORDERED: Simethicone CHEW TAB* 80 MG PO PRN (10:23)
[2016-11-12] MEDS: Ciprofloxacin TAB* 500 MG PO SCH ×2 (11:12→21:55)
[2016-11-12] MEDS: metroNIDAZOLE TAB* 250 MG PO SCH ×2 (14:31→21:56)
--- NOTE | 2016-11-12 19:15 | RAD ---
INDICATION: Abdominal pain. COMPARISON: Comparison is made with a prior KUB series from November 08, 2016. TECHNIQUE: Frontal supine films of the abdomen were obtained. FINDINGS: The small bowel and colon appear nondistended. There is mitral annular calcification and dense calcification within the abdominal aorta and branch vessels. There are small bilateral pleural effusions. IMPRESSION: 1. NO EVIDENCE FOR OBSTRUCTION. 2. SMALL BILATERAL PLEURAL EFFUSIONS.
--- NOTE | 2016-11-12 21:14 | PN ---
Hospitalist Progress Note Nursing called reporting patient is having cramping abdominal pain and is unable to urinate. Bladder scan shows greater than 999ml present. This is reportedly her first complaint of retention. Ordered one time straight cath with q8h bladder scans to evaluate for additional retention at which point a Mendez may be necessary. Will review med list to evaluate for potentially offending agents that may be contributing to her acute retention.
[2016-11-12] MEDS ORDERED: Phenazopyridine TAB* 100 MG PO ONE ×2 (22:15→22:27)
[2016-11-12 22:45] LABS: Urine Bacteria Absent (Absent); Urine Bilirubin Negative (Negative); Urine Glucose Negative (Negative); Urine Nitrite Negative (Negative)
[2016-11-13] MEDS: metroNIDAZOLE TAB* 250 MG PO SCH (07:37)
[2016-11-13] MEDS: Losartan TAB* 25 MG PO SCH (07:38)
[2016-11-13] MEDS: Diltiazem CD CAP* 240 MG PO SCH (07:39)
[2016-11-13] MEDS: Dicyclomine CAP* 10 MG PO SCH ×2 (07:40→10:39)
[2016-11-13] MEDS: Apixaban* 5 MG TAB PO SCH (07:40)
[2016-11-13] MEDS: Ciprofloxacin TAB* 500 MG PO SCH (07:41)
[2016-11-13] MEDS: Aspirin Low Dose CHEW TAB* 81 MG PO SCH (07:41)
[2016-11-13] MEDS: Metoprolol Succinate XL TAB* 25 MG PO SCH (07:42)
[2016-11-13 11:38] VITALS: BP 109/55
--- NOTE | 2016-11-13 11:58 | PN ---
Subjective Date of Service: 11/13/16 Interval History: C/O pain R flank. Suprapubic pain gone. Nl BM today. Appetite OK. Family History: Unchanged from Admission Social History: Unchanged from Admission Past Medical History: Unchanged from Admission Objective Active Medications: Acetaminophen (Tylenol Tab*) 650 mg PO Q6H PRN PRN Reason: FEVER/PAIN Last Admin: 11/12/16 03:54 Dose: 650 mg Albuterol (Ventolin 2.5 Mg/3 Ml Neb.Tawanna*) 2.5 mg INH Q2H PRN PRN Reason: SOB/WHEEZING Last Admin: 11/12/16 00:02 Dose: 2.5 mg Alprazolam (Xanax Tab*) 0.125 mg PO Q8H PRN PRN Reason: ANXIETY Last Admin: 11/12/16 21:56 Dose: 0.125 mg Apixaban (Eliquis*) 5 mg PO BID [facility] Last Admin: 11/13/16 07:40 Dose: 5 mg Aspirin (Aspirin Low Dose Tab*) 81 mg PO DAILY [facility] Last Admin: 11/13/16 07:41 Dose: 81 mg Ciprofloxacin (Cipro Tab*) 500 mg PO Q12HR [facility] Last Admin: 11/13/16 07:41 Dose: 500 mg Dicyclomine HCl (Bentyl Cap*) 10 mg PO AC [facility] Last Admin: 11/13/16 10:39 Dose: 10 mg Diltiazem HCl (Cardizem Cd Cap*) 240 mg PO DAILY [facility] Last Admin: 11/13/16 07:39 Dose: 240 mg Losartan Potassium (Cozaar Tab*) 50 mg PO DAILY [facility] Last Admin: 11/13/16 07:38 Dose: 50 mg Metoprolol Succinate (Toprol Xl Tab*) 25 mg PO DAILY [facility] Last Admin: 11/13/16 07:42 Dose: 25 mg Metronidazole (Flagyl Tab*) 500 mg PO TID [facility] Last Admin: 11/13/16 07:37 Dose: 500 mg Mirtazapine (Remeron Tab*) 7.5 mg PO BEDTIME PRN PRN Reason: SLEEP Ondansetron HCl (Zofran Inj*) 4 mg IV Q6H PRN PRN Reason: NAUSEA Last Admin: 11/12/16 00:19 Dose: 4 mg Simethicone (Mylicon*) 80 mg PO Q6H PRN PRN Reason: INDIGESTION Last Admin: 11/12/16 11:19 Dose: 80 mg Tamsulosin HCl (Flomax Cap*) 0.4 mg PO BEDTIME [facility] Vital Signs 11/12/16 11/12/16 11/12/16 12:00 12:10 12:20 Temperature Pulse Rate Respiratory 21 16 14 Rate Blood Pressure (mmHg) O2 Sat by Pulse Oximetry 11/12/16 11/12/16 11/12/16 12:30 12:40 12:50 Temperature Pulse Rate Respiratory 18 16 20 Rate Blood Pressure (mmHg) O2 Sat by Pulse Oximetry 11/12/16 11/12/16 11/12/16 13:00 13:10 13:17 Temperature Pulse Rate Respiratory 13 17 20 Rate Blood Pressure (mmHg) O2 Sat by Pulse Oximetry 11/12/16 11/12/16 11/12/16 13:20 13:30 13:40 Temperature Pulse Rate Respiratory 26 18 19 Rate Blood Pressure (mmHg) O2 Sat by Pulse Oximetry 11/12/16 11/12/16 11/12/16 13:50 14:00 14:10 Temperature Pulse Rate Respiratory 12 16 22 Rate Blood Pressure (mmHg) O2 Sat by Pulse Oximetry 11/12/16 11/12/16 11/12/16 14:20 14:30 14:40 Temperature Pulse Rate Respiratory 13 20 8 Rate Blood Pressure (mmHg) O2 Sat by Pulse Oximetry 11/12/16 11/12/16 11/12/16 14:50 15:00 15:10 Temperature Pulse Rate Respiratory 2 23 22 Rate Blood Pressure (mmHg) O2 Sat by Pulse Oximetry 11/12/16 11/12/16 11/12/16 15:20 15:30 15:40 Temperature Pulse Rate Respiratory 38 17 17 Rate Blood Pressure (mmHg) O2 Sat by Pulse Oximetry 11/12/16 11/12/16 11/12/16 15:42 15:50 16:00 Temperature 98.6 F Pulse Rate 68 Respiratory 20 17 15 Rate Blood Pressure 116/52 (mmHg) O2 Sat by Pulse 96 Oximetry 11/12/16 11/12/16 11/12/16 16:10 16:20 16:30 Temperature Pulse Rate Respiratory 18 17 20 Rate Blood Pressure (mmHg) O2 Sat by Pulse Oximetry 11/12/16 11/12/16 11/12/16 16:40 16:50 17:00 Temperature Pulse Rate Respiratory 22 17 30 Rate Blood Pressure (mmHg) O2 Sat by Pulse Oximetry 11/12/16 11/12/16 11/12/16 17:10 17:11 17:20 Temperature Pulse Rate Respiratory 20 20 21 Rate Blood Pressure (mmHg) O2 Sat by Pulse Oximetry 11/12/16 11/12/16 11/12/16 17:30 17:40 17:50 Temperature Pulse Rate Respiratory 17 19 21 Rate Blood Pressure (mmHg) O2 Sat by Pulse Oximetry 11/12/16 11/12/16 11/12/16 18:00 18:10 18:20 Temperature Pulse Rate Respiratory 21 20 18 Rate Blood Pressure (mmHg) O2 Sat by Pulse Oximetry 11/12/16 11/12/16 11/12/16 18:30 18:40 19:07 Temperature Pulse Rate Respiratory 17 20 44 Rate Blood Pressure (mmHg) O2 Sat by Pulse Oximetry 11/12/16 11/12/16 11/12/16 19:10 19:11 19:20 Temperature Pulse Rate Respiratory 23 23 19 Rate Blood Pressure (mmHg) O2 Sat by Pulse Oximetry 11/12/16 11/12/16 11/12/16 19:30 19:40 19:50 Temperature Pulse Rate Respiratory 17 17 20 Rate Blood Pressure (mmHg) O2 Sat by Pulse Oximetry 11/12/16 11/12/16 11/12/16 19:53 20:00 20:10 Temperature 97.4 F Pulse Rate 90 Respiratory 24 17 19 Rate Blood Pressure 112/40 (mmHg) O2 Sat by Pulse 98 Oximetry 11/12/16 11/12/16 11/12/16 20:20 20:30 20:40 Temperature Pulse Rate Respiratory 20 16 16 Rate Blood Pressure (mmHg) O2 Sat by Pulse Oximetry 11/12/16 11/12/16 11/12/16 20:50 21:00 21:10 Temperature Pulse Rate Respiratory 16 17 15 Rate Blood Pressure (mmHg) O2 Sat by Pulse Oximetry 11/12/16 11/12/16 11/12/16 21:20 21:30 21:40 Temperature Pulse Rate Respiratory 23 22 18 Rate Blood Pressure (mmHg) O2 Sat by Pulse Oximetry 11/12/16 11/12/16 11/12/16 21:50 21:56 22:00 Temperature Pulse Rate Respiratory 24 24 9 Rate Blood Pressure (mmHg) O2 Sat by Pulse Oximetry 11/12/16 11/12/16 11/12/16 22:10 22:15 22:16 Temperature Pulse Rate 87 Respiratory 14 20 Rate Blood Pressure (mmHg) O2 Sat by Pulse 95 95 Oximetry 11/12/16 11/12/16 11/12/16 22:20 22:30 22:40 Temperature Pulse Rate Respiratory 22 10 13 Rate Blood Pressure (mmHg) O2 Sat by Pulse Oximetry 11/12/16 11/12/16 11/12/16 22:50 23:00 23:10 Temperature Pulse Rate Respiratory 20 18 16 Rate Blood Pressure (mmHg) O2 Sat by Pulse Oximetry 11/12/16 11/12/16 11/12/16 23:20 23:30 23:40 Temperature Pulse Rate Respiratory 15 0 0 Rate Blood Pressure (mmHg) O2 Sat by Pulse Oximetry 11/12/16 11/12/16 11/13/16 23:50 23:56 00:00 Temperature 98.5 F Pulse Rate 143 Respiratory 14 20 0 Rate Blood Pressure 133/64 (mmHg) O2 Sat by Pulse 95 Oximetry 11/13/16 11/13/16 11/13/16 00:10 00:20 00:30 Temperature Pulse Rate Respiratory 0 0 0 Rate Blood Pressure (mmHg) O2 Sat by Pulse Oximetry 11/13/16 11/13/16 11/13/16 00:40 00:50 01:00 Temperature Pulse Rate Respiratory 0 0 8 Rate Blood Pressure (mmHg) O2 Sat by Pulse Oximetry 11/13/16 11/13/16 11/13/16 01:10 01:20 01:30 Temperature Pulse Rate Respiratory 0 0 17 Rate Blood Pressure (mmHg) O2 Sat by Pulse Oximetry 11/13/16 11/13/16 11/13/16 01:40 01:50 02:00 Temperature Pulse Rate Respiratory 15 26 32 Rate Blood Pressure (mmHg) O2 Sat by Pulse Oximetry 11/13/16 11/13/16 11/13/16 02:10 02:20 02:30 Temperature Pulse Rate Respiratory 10 18 34 Rate Blood Pressure (mmHg) O2 Sat by Pulse Oximetry 11/13/16 11/13/16 11/13/16 02:40 02:50 03:00 Temperature Pulse Rate Respiratory 22 19 12 Rate Blood Pressure (mmHg) O2 Sat by Pulse Oximetry 0711/13/16 11/13/16 03:10 03:20 03:30 Temperature Pulse Rate Respiratory 9 1 25 Rate Blood Pressure (mmHg) O2 Sat by Pulse Oximetry 11/13/16 11/13/16 11/13/16 03:33 03:40 03:50 Temperature 98.3 F Pulse Rate 81 Respiratory 16 6 15 Rate Blood Pressure 141/67 (mmHg) O2 Sat by Pulse 95 Oximetry 11/13/16 11/13/16 11/13/16 04:00 04:10 04:20 Temperature Pulse Rate Respiratory 15 0 15 Rate Blood Pressure (mmHg) O2 Sat by Pulse Oximetry 11/13/16 11/13/16 11/13/16 04:30 04:40 04:50 Temperature Pulse Rate Respiratory 16 15 14 Rate Blood Pressure (mmHg) O2 Sat by Pulse Oximetry 11/13/16 11/13/16 11/13/16 05:00 05:10 05:20 Temperature Pulse Rate Respiratory 5 0 12 Rate Blood Pressure (mmHg) O2 Sat by Pulse Oximetry 11/13/16 11/13/16 11/13/16 05:30 05:40 05:50 Temperature Pulse Rate Respiratory 16 9 18 Rate Blood Pressure (mmHg) O2 Sat by Pulse Oximetry 11/13/16 11/13/16 11/13/16 06:00 06:10 06:20 Temperature Pulse Rate Respiratory 21 15 15 Rate Blood Pressure (mmHg) O2 Sat by Pulse Oximetry 11/13/16 11/13/16 11/13/16 06:30 06:31 06:40 Temperature Pulse Rate Respiratory 16 22 15 Rate Blood Pressure (mmHg) O2 Sat by Pulse Oximetry 11/13/16 11/13/16 11/13/16 06:50 07:00 07:10 Temperature Pulse Rate Respiratory 19 15 20 Rate Blood Pressure (mmHg) O2 Sat by Pulse Oximetry 11/13/16 11/13/16 11/13/16 07:20 07:30 07:33 Temperature 98.4 F Pulse Rate 88 Respiratory 23 20 20 Rate Blood Pressure 133/63 (mmHg) O2 Sat by Pulse 96 Oximetry 11/13/16 11/13/16 11/13/16 07:40 07:50 07:56 Temperature Pulse Rate 67 Respiratory 18 16 18 Rate Blood Pressure (mmHg) O2 Sat by Pulse 97 Oximetry 11/13/16 11/13/16 11/13/16 08:00 08:10 08:20 Temperature Pulse Rate Respiratory 16 15 16 Rate Blood Pressure (mmHg) O2 Sat by Pulse Oximetry 11/13/16 11/13/16 11/13/16 08:30 08:40 08:50 Temperature Pulse Rate Respiratory 17 22 20 Rate Blood Pressure (mmHg) O2 Sat by Pulse Oximetry 11/13/16 11/13/16 11/13/16 09:00 09:10 09:20 Temperature Pulse Rate Respiratory 17 10 22 Rate Blood Pressure (mmHg) O2 Sat by Pulse Oximetry 11/13/16 11/13/16 11/13/16 09:30 09:35 09:40 Temperature Pulse Rate Respiratory 23 20 11 Rate Blood Pressure (mmHg) O2 Sat by Pulse Oximetry 11/13/16 11/13/16 11/13/16 09:50 10:00 10:10 Temperature Pulse Rate Respiratory 12 20 27 Rate Blood Pressure (mmHg) O2 Sat by Pulse Oximetry 11/13/16 11/13/16 11/13/16 10:20 10:30 10:39 Temperature Pulse Rate Respiratory 17 17 18 Rate Blood Pressure (mmHg) O2 Sat by Pulse Oximetry 11/13/16 11/13/16 11/13/16 10:40 10:50 11:00 Temperature Pulse Rate Respiratory 18 17 11 Rate Blood Pressure (mmHg) O2 Sat by Pulse Oximetry 11/13/16 11/13/16 11/13/16 11:10 11:19 11:20 Temperature 97.5 F Pulse Rate 69 Respiratory 10 16 5 Rate Blood Pressure 109/55 (mmHg) O2 Sat by Pulse 97 Oximetry 11/13/16 11:30 Temperature Pulse Rate Respiratory 18 Rate Blood Pressure (mmHg) O2 Sat by Pulse Oximetry Oxygen Devices in Use Now: Nasal Cannula Appearance: Alert, partly up in bed. In good spirits. Looks comfortable. Eyes: No Scleral Icterus Abdominal: NL Sounds; No Tenderness; No Distention, No Hepatosplenomegaly, - - Very jumpy to light touch R flank, ? pain is in lower ribs Extremities: No Edema, No Clubbing, Cyanosis, - Skin: No Rash or Ulcers, No Nodules or Sclerosis, - Neurological: Alert and Oriented x 3, NL Sensation Result Diagrams: 11/12/16 06:39 11/12/16 06:36 Additional Lab and Data: . Microbiology and Other Data: Microbiology 11/08/16 04:26 Aerobic Blood Culture - Preliminary Blood Venous No Growth Day 4 Anaerobic Blood Culture - Preliminary No Growth Day 4 Blood Culture - Final 11/08/16 00:30 Nasal Screen MRSA (PCR)(MEGA) - Final Nasal Mrsa Negative Assess/Plan/Problems-Billing . Assessment: 85 yo female with acute gastroenteritis with diarrhea. electrolyte derangements noted. New onset AF 11/10/16 (early AM) --> now rate controlled and anticoagulated. 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 . - Patient Problems (1) Atrial fibrillation with rapid ventricular response Current Visit: Yes Status: Acute Priority: High Code(s): I48.91 - UNSPECIFIED ATRIAL FIBRILLATION SNOMED Code(s): 090741844233618 Comment: Adequate rate control. Chronic/recurrent. Followed by Dr. Muller. Continue Eliquis, diltiazem CD. (2) Valvular heart disease Current Visit: Yes Status: Acute Comment: By auscultation has aortic stenosis, which daughter confirms at the bedside. Fup Dr. Muller. (3) Enteritis Current Visit: Yes Status: Acute Priority: High Code(s): K52.9 - NONINFECTIVE GASTROENTERITIS AND COLITIS, UNSPECIFIED SNOMED Code(s): 64630745 Comment: At her baseline with BM's. Not clear why WBC up. Family expects antibiotics through Sunday, convert to PO. Blood C&S neg. No stool C&S sent. (4) HTN (hypertension) Current Visit: Yes Status: Acute Priority: High Code(s): I10 - ESSENTIAL ( PRIMARY) HYPERTENSION SNOMED Code(s): 97417307 Comment: Continue diltiazem, metoprolol. Stop losartan. (5) PAOD (peripheral arterial occlusive disease) Current Visit: Yes Status: Acute Priority: High Code(s): I77.9 - DISORDER OF ARTERIES AND ARTERIOLES, UNSPECIFIED SNOMED Code(s): 763835826 Comment: Not symptomatic at present. (6) Urinary retention Current Visit: Yes Status: Acute Code(s): R33.9 - RETENTION OF URINE, UNSPECIFIED SNOMED Code(s): 654813356 Comment: Bladder scan 11/12 showed >999ml PVR. Mendez draining well. Tamsulosin ordered. (7) Right flank pain Current Visit: Yes Status: Acute Code(s): R10.9 - UNSPECIFIED ABDOMINAL PAIN SNOMED Code(s): 666770823 Comment: Possibly rib pain. US R kidney ordered. Note her L kidney is non- funcitoning.
--- NOTE | 2016-11-13 12:13 | PN ---
Subjective Date of Service: 11/13/16 Interval History: See earlier note today. Family History: Unchanged from Admission Social History: Unchanged from Admission Past Medical History: Unchanged from Admission Objective Active Medications: Acetaminophen (Tylenol Tab*) 650 mg PO Q6H PRN PRN Reason: FEVER/PAIN Last Admin: 11/12/16 03:54 Dose: 650 mg Albuterol (Ventolin 2.5 Mg/3 Ml Neb.[place]anna*) 2.5 mg INH Q2H PRN PRN Reason: SOB/WHEEZING Last Admin: 11/12/16 00:02 Dose: 2.5 mg Alprazolam (Xanax Tab*) 0.125 mg PO Q8H PRN PRN Reason: ANXIETY Last Admin: 11/12/16 21:56 Dose: 0.125 mg Apixaban (Eliquis*) 5 mg PO BID [facility] Last Admin: 11/13/16 07:40 Dose: 5 mg Aspirin (Aspirin Low Dose Tab*) 81 mg PO DAILY [facility] Last Admin: 11/13/16 07:41 Dose: 81 mg Ciprofloxacin (Cipro Tab*) 500 mg PO Q12HR [facility] Last Admin: 11/13/16 07:41 Dose: 500 mg Dicyclomine HCl (Bentyl Cap*) 10 mg PO AC [facility] Last Admin: 11/13/16 10:39 Dose: 10 mg Diltiazem HCl (Cardizem Cd Cap*) 240 mg PO DAILY [facility] Last Admin: 11/13/16 07:39 Dose: 240 mg Metoprolol Succinate (Toprol Xl Tab*) 25 mg PO DAILY [facility] Last Admin: 11/13/16 07:42 Dose: 25 mg Metronidazole (Flagyl Tab*) 500 mg PO TID [facility] Last Admin: 11/13/16 07:37 Dose: 500 mg Mirtazapine (Remeron Tab*) 7.5 mg PO BEDTIME PRN PRN Reason: SLEEP Ondansetron HCl (Zofran Inj*) 4 mg IV Q6H PRN PRN Reason: NAUSEA Last Admin: 11/12/16 00:19 Dose: 4 mg Simethicone (Mylicon*) 80 mg PO Q6H PRN PRN Reason: INDIGESTION Last Admin: 11/12/16 11:19 Dose: 80 mg Tamsulosin HCl (Flomax Cap*) 0.4 mg PO BEDTIME [facility] Vital Signs 11/12/16 11/12/16 11/12/16 12:20 12:30 12:40 Temperature Pulse Rate Respiratory 14 18 16 Rate Blood Pressure (mmHg) O2 Sat by Pulse Oximetry 11/12/16 11/12/16 11/12/16 12:50 13:00 13:10 Temperature Pulse Rate Respiratory 20 13 17 Rate Blood Pressure (mmHg) O2 Sat by Pulse Oximetry 11/12/16 11/12/16 11/12/16 13:17 13:20 13:30 Temperature Pulse Rate Respiratory 20 26 18 Rate Blood Pressure (mmHg) O2 Sat by Pulse Oximetry 11/12/16 11/12/16 11/12/16 13:40 13:50 14:00 Temperature Pulse Rate Respiratory 19 12 16 Rate Blood Pressure (mmHg) O2 Sat by Pulse Oximetry 11/12/16 11/12/16 11/12/16 14:10 14:20 14:30 Temperature Pulse Rate Respiratory 22 13 20 Rate Blood Pressure (mmHg) O2 Sat by Pulse Oximetry 11/12/16 11/12/16 11/12/16 14:40 14:50 15:00 Temperature Pulse Rate Respiratory 8 2 23 Rate Blood Pressure (mmHg) O2 Sat by Pulse Oximetry 11/12/16 11/12/16 11/12/16 15:10 15:20 15:30 Temperature Pulse Rate Respiratory 22 38 17 Rate Blood Pressure (mmHg) O2 Sat by Pulse Oximetry 11/12/16 11/12/16 11/12/16 15:40 15:42 15:50 Temperature 98.6 F Pulse Rate 68 Respiratory 17 20 17 Rate Blood Pressure 116/52 (mmHg) O2 Sat by Pulse 96 Oximetry 11/12/16 11/12/16 11/12/16 16:00 16:10 16:20 Temperature Pulse Rate Respiratory 15 18 17 Rate Blood Pressure (mmHg) O2 Sat by Pulse Oximetry 11/12/16 11/12/16 11/12/16 16:30 16:40 16:50 Temperature Pulse Rate Respiratory 20 22 17 Rate Blood Pressure (mmHg) O2 Sat by Pulse Oximetry 11/12/16 11/12/16 11/12/16 17:00 17:10 17:11 Temperature Pulse Rate Respiratory 30 20 20 Rate Blood Pressure (mmHg) O2 Sat by Pulse Oximetry 11/12/16 11/12/16 11/12/16 17:20 17:30 17:40 Temperature Pulse Rate Respiratory 21 17 19 Rate Blood Pressure (mmHg) O2 Sat by Pulse Oximetry 11/12/16 11/12/16 11/12/16 17:50 18:00 18:10 Temperature Pulse Rate Respiratory 21 21 20 Rate Blood Pressure (mmHg) O2 Sat by Pulse Oximetry 11/12/16 11/12/16 11/12/16 18:20 18:30 18:40 Temperature Pulse Rate Respiratory 18 17 20 Rate Blood Pressure (mmHg) O2 Sat by Pulse Oximetry 11/12/16 11/12/16 11/12/16 19:07 19:10 19:11 Temperature Pulse Rate Respiratory 44 23 23 Rate Blood Pressure (mmHg) O2 Sat by Pulse Oximetry 11/12/16 11/12/16 11/12/16 19:20 19:30 19:40 Temperature Pulse Rate Respiratory 19 17 17 Rate Blood Pressure (mmHg) O2 Sat by Pulse Oximetry 11/12/16 11/12/16 11/12/16 19:50 19:53 20:00 Temperature 97.4 F Pulse Rate 90 Respiratory 20 24 17 Rate Blood Pressure 112/40 (mmHg) O2 Sat by Pulse 98 Oximetry 11/12/16 11/12/16 11/12/16 20:10 20:20 20:30 Temperature Pulse Rate Respiratory 19 20 16 Rate Blood Pressure (mmHg) O2 Sat by Pulse Oximetry 11/12/16 11/12/16 11/12/16 20:40 20:50 21:00 Temperature Pulse Rate Respiratory 16 16 17 Rate Blood Pressure (mmHg) O2 Sat by Pulse Oximetry 11/12/16 11/12/16 11/12/16 21:10 21:20 21:30 Temperature Pulse Rate Respiratory 15 23 22 Rate Blood Pressure (mmHg) O2 Sat by Pulse Oximetry 11/12/16 11/12/16 11/12/16 21:40 21:50 21:56 Temperature Pulse Rate Respiratory 18 24 24 Rate Blood Pressure (mmHg) O2 Sat by Pulse Oximetry 11/12/16 11/12/16 11/12/16 22:00 22:10 22:15 Temperature Pulse Rate 87 Respiratory 9 14 20 Rate Blood Pressure (mmHg) O2 Sat by Pulse 95 Oximetry 11/12/16 11/12/16 11/12/16 22:16 22:20 22:30 Temperature Pulse Rate Respiratory 22 10 Rate Blood Pressure (mmHg) O2 Sat by Pulse 95 Oximetry 11/12/16 11/12/16 11/12/16 22:40 22:50 23:00 Temperature Pulse Rate Respiratory 13 20 18 Rate Blood Pressure (mmHg) O2 Sat by Pulse Oximetry 11/12/16 11/12/16 11/12/16 23:10 23:20 23:30 Temperature Pulse Rate Respiratory 16 15 0 Rate Blood Pressure (mmHg) O2 Sat by Pulse Oximetry 11/12/16 11/12/16 11/12/16 23:40 23:50 23:56 Temperature 98.5 F Pulse Rate 143 Respiratory 0 14 20 Rate Blood Pressure 133/64 (mmHg) O2 Sat by Pulse 95 Oximetry 11/13/16 11/13/16 11/13/16 00:00 00:10 00:20 Temperature Pulse Rate Respiratory 0 0 0 Rate Blood Pressure (mmHg) O2 Sat by Pulse Oximetry 11/13/16 11/13/16 11/13/16 00:30 00:40 00:50 Temperature Pulse Rate Respiratory 0 0 0 Rate Blood Pressure (mmHg) O2 Sat by Pulse Oximetry 11/13/16 11/13/16 11/13/16 01:00 01:10 01:20 Temperature Pulse Rate Respiratory 8 0 0 Rate Blood Pressure (mmHg) O2 Sat by Pulse Oximetry 11/13/16 11/13/16 11/13/16 01:30 01:40 01:50 Temperature Pulse Rate Respiratory 17 15 26 Rate Blood Pressure (mmHg) O2 Sat by Pulse Oximetry 11/13/16 11/13/16 11/13/16 02:00 02:10 02:20 Temperature Pulse Rate Respiratory 32 10 18 Rate Blood Pressure (mmHg) O2 Sat by Pulse Oximetry 11/13/16 11/13/16 11/13/16 02:30 02:40 02:50 Temperature Pulse Rate Respiratory 34 22 19 Rate Blood Pressure (mmHg) O2 Sat by Pulse Oximetry 11/13/16 11/13/16 11/13/16 03:00 03:10 03:20 Temperature Pulse Rate Respiratory 12 9 1 Rate Blood Pressure (mmHg) O2 Sat by Pulse Oximetry 11/13/16 11/13/16 11/13/16 03:30 03:33 03:40 Temperature 98.3 F Pulse Rate 81 Respiratory 25 16 6 Rate Blood Pressure 141/67 (mmHg) O2 Sat by Pulse 95 Oximetry 11/13/16 11/13/16 11/13/16 03:50 04:00 04:10 Temperature Pulse Rate Respiratory 15 15 0 Rate Blood Pressure (mmHg) O2 Sat by Pulse Oximetry 11/13/16 11/13/16 11/13/16 04:20 04:30 04:40 Temperature Pulse Rate Respiratory 15 16 15 Rate Blood Pressure (mmHg) O2 Sat by Pulse Oximetry 11/13/16 11/13/16 11/13/16 04:50 05:00 05:10 Temperature Pulse Rate Respiratory 14 5 0 Rate Blood Pressure (mmHg) O2 Sat by Pulse Oximetry 11/13/16 11/13/16 11/13/16 05:20 05:30 05:40 Temperature Pulse Rate Respiratory 12 16 9 Rate Blood Pressure (mmHg) O2 Sat by Pulse Oximetry 11/13/16 11/13/16 11/13/16 05:50 06:00 06:10 Temperature Pulse Rate Respiratory 18 21 15 Rate Blood Pressure (mmHg) O2 Sat by Pulse Oximetry 11/13/16 11/13/16 11/13/16 06:20 06:30 06:31 Temperature Pulse Rate Respiratory 15 16 22 Rate Blood Pressure (mmHg) O2 Sat by Pulse Oximetry 11/13/16 11/13/16 11/13/16 06:40 06:50 07:00 Temperature Pulse Rate Respiratory 15 19 15 Rate Blood Pressure (mmHg) O2 Sat by Pulse Oximetry 11/13/16 11/13/16 11/13/16 07:10 07:20 07:30 Temperature Pulse Rate Respiratory 20 23 20 Rate Blood Pressure (mmHg) O2 Sat by Pulse Oximetry 11/13/16 11/13/16 11/13/16 07:33 07:40 07:50 Temperature 98.4 F Pulse Rate 88 Respiratory 20 18 16 Rate Blood Pressure 133/63 (mmHg) O2 Sat by Pulse 96 Oximetry 11/13/16 11/13/16 11/13/16 07:56 08:00 08:10 Temperature Pulse Rate 67 Respiratory 18 16 15 Rate Blood Pressure (mmHg) O2 Sat by Pulse 97 Oximetry 11/13/16 11/13/16 11/13/16 08:20 08:30 08:40 Temperature Pulse Rate Respiratory 16 17 22 Rate Blood Pressure (mmHg) O2 Sat by Pulse Oximetry 11/13/16 11/13/16 11/13/16 08:50 09:00 09:10 Temperature Pulse Rate Respiratory 20 17 10 Rate Blood Pressure (mmHg) O2 Sat by Pulse Oximetry 11/13/16 11/13/16 11/13/16 09:20 09:30 09:35 Temperature Pulse Rate Respiratory 22 23 20 Rate Blood Pressure (mmHg) O2 Sat by Pulse Oximetry 11/13/16 11/13/16 11/13/16 09:40 09:50 10:00 Temperature Pulse Rate Respiratory 11 12 20 Rate Blood Pressure (mmHg) O2 Sat by Pulse Oximetry 11/13/16 11/13/16 11/13/16 10:10 10:20 10:30 Temperature Pulse Rate Respiratory 27 17 17 Rate Blood Pressure (mmHg) O2 Sat by Pulse Oximetry 11/13/16 11/13/16 11/13/16 10:39 10:40 10:50 Temperature Pulse Rate Respiratory 18 18 17 Rate Blood Pressure (mmHg) O2 Sat by Pulse Oximetry 11/13/16 11/13/16 11/13/16 11:00 11:10 11:19 Temperature 97.5 F Pulse Rate 69 Respiratory 11 10 16 Rate Blood Pressure 109/55 (mmHg) O2 Sat by Pulse 97 Oximetry 11/13/16 11/13/16 11:20 11:30 Temperature Pulse Rate Respiratory 5 18 Rate Blood Pressure (mmHg) O2 Sat by Pulse Oximetry Oxygen Devices in Use Now: Nasal Cannula Result Diagrams: 11/12/16 06:39 11/12/16 06:36 Additional Lab and Data: . Microbiology and Other Data: Microbiology 11/08/16 04:26 Aerobic Blood Culture - Preliminary Blood Venous No Growth Day 4 Anaerobic Blood Culture - Preliminary No Growth Day 4 Blood Culture - Final 11/08/16 00:30 Nasal Screen MRSA (PCR)(MEGA) - Final Nasal Mrsa Negative Assess/Plan/Problems-Billing . Assessment: 85 yo female with acute gastroenteritis with diarrhea. electrolyte derangements noted. New onset AF 11/10/16 (early AM) --> now rate controlled and anticoagulated. 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 . - Patient Problems (1) Atrial fibrillation with rapid ventricular response Current Visit: Yes Status: Acute Priority: High Code(s): I48.91 - UNSPECIFIED ATRIAL FIBRILLATION SNOMED Code(s): 173250136969244 Comment: Adequate rate control. Chronic/recurrent. Followed by Dr. Muller. Continue Eliquis, diltiazem CD. (2) Valvular heart disease Current Visit: Yes Status: Acute Comment: By auscultation has aortic stenosis, which daughter confirms at the bedside. Fup Dr. Muller. (3) Enteritis Current Visit: Yes Status: Acute Priority: High Code(s): K52.9 - NONINFECTIVE GASTROENTERITIS AND COLITIS, UNSPECIFIED SNOMED Code(s): 16931246 Comment: At her baseline with BM's. Not clear why WBC up. Family expects antibiotics through Sunday, convert to PO. Blood C&S neg. No stool C&S sent. (4) HTN (hypertension) Current Visit: Yes Status: Acute Priority: High Code(s): I10 - ESSENTIAL ( PRIMARY) HYPERTENSION SNOMED Code(s): 61044858 Comment: Continue diltiazem, metoprolol. Stop losartan. (5) PAOD (peripheral arterial occlusive disease) Current Visit: Yes Status: Acute Priority: High Code(s): I77.9 - DISORDER OF ARTERIES AND ARTERIOLES, UNSPECIFIED SNOMED Code(s): 334196732 Comment: Not symptomatic at present. (6) Urinary retention Current Visit: Yes Status: Acute Code(s): R33.9 - RETENTION OF URINE, UNSPECIFIED SNOMED Code(s): 255757747 Comment: Bladder scan 11/12 showed >999ml PVR. Mendez draining well. Tamsulosin ordered. (7) Right flank pain Current Visit: Yes Status: Acute Code(s): R10.9 - UNSPECIFIED ABDOMINAL PAIN SNOMED Code(s): 338960515 Comment: Possibly rib pain. US R kidney ordered. Note her L kidney is non- funcitoning. (8) COPD (chronic obstructive pulmonary disease) Current Visit: Yes Status: Acute Code(s): J44.9 - CHRONIC OBSTRUCTIVE PULMONARY DISEASE, UNSPECIFIED SNOMED Code(s): 25942511 Comment: Over 50 yrs of smoking. O2 sat 83-83% on RA 11/13/16.
--- NOTE | 2016-11-13 14:04 | RAD ---
HISTORY: Right flank pain COMPARISONS: CT dated November 02, 2016 TECHNIQUE: Multiple transverse and longitudinal ultrasound images were obtained of the right kidney using grayscale and color Doppler imaging. FINDINGS: RIGHT KIDNEY: The right kidney is normal in shape, size, contour, and echogenicity. Again noted are multiple echogenic foci consistent with nonobstructing renal calyceal stones. There is no significant hydronephrosis. The right kidney measures 12.6 x 4.1 x 5 cm. LEFT KIDNEY: No images are submitted of the left kidney BLADDER: No images are submitted of the bladder. AORTA AND IVC: No images are submitted of the vasculature. RETROPERITONEUM: Unremarkable. OTHER: None. IMPRESSION: AGAIN NOTED ARE MULTIPLE NONOBSTRUCTIVE RIGHT RENAL CALYCEAL STONES
[2016-11-13] MEDS ORDERED: Tamsulosin CAP* 0.4 MG PO SCH (21:00)
--- NOTE | 2016-11-14 05:23 | TRS ---
CC: Dr. Sarkar TRANSFER SUMMARY: DATE OF ADMISSION: DATE OF DISCHARGE: 11/13/16 HISTORY: This 85-year-old woman presented with abdominal pain after a fall. She had some diarrhea as well at home. She had a white count of 25,000. CT scan showed aortic calcifications, but no acu te findings. She was treated with ciprofloxacin and metronidazole. She developed atrial fibrillation here. She had been followed with Dr. Muller. He had not given her anticoagulation because of her frequent falls at home. Now that she is in controlled environment, this situation is different. She was sta rted on apixaban here. She had diltiazem added for rate control. We evaluated her oxygen needs on room air during the day. Her O2 sat was 83% to 84%, so she would r equire 24-hour a day oxygen. She had urinary retention the night before transfer with a volume of over 999 mL, could not be recor ded on the bladder scan. A Mendez catheter was inserted. She was started on tamsulosin. She receiv ed the first dose the evening of 11/13/16. I would consider a voiding trial in about 1 week. She d id complain of pain in her right flank area. Ultrasound of the right kidney was ordered and is pend ing. FINAL DIAGNOSES: 1. Atrial fibrillation. 2. Valvular heart disease. 3. Probable gastroenteritis. 4. Hypertension. 5. Peripheral arterial disease. 6. Urinary retention. 7. Right flank pain. 8. Chronic obstructive pulmonary disease. DISCHARGE MEDICATIONS: 1. Apixaban 5 mg b.i.d. 2. Diltiazem CD 240 mg daily. 3. Mirtazapine 7.5 mg h.s. for appetite. 4. Tamsulosin 0.4 mg h.s. 5. Aspirin 81 mg daily. 6. Multivitamin daily. 7. Losartan 50 mg daily. 8. Acetaminophen 650 mg b.i.d. 9. Vitamin D3 1000 mg daily. 10. Omeprazole 20 mg daily. 11. Methotrexate 7.5 mg weekly. 12. Folvite 1 mg daily. 13. Metoprolol succinate 25 mg. [id number]/[facility] #: [id number]
== END 2016-11-13 14:15 | DRG 392 ==
LOC: ED 18:22 → MEDTELE 23:11
PROVIDERS: ADMIT Hospitalist; ATTEND Internal Medicine
PROC: 0T9B70Z Drainage of Bladder with Drainage Device, Via Natural or Artificial Opening (ICD-10-PCS; principal; 2016-11-12)
DX: K52.9 Noninfective gastroenteritis and colitis, unspecified (principal); F05 Delirium due to known physiological condition; I48.91 Unspecified atrial fibrillation; I10 Essential (primary) hypertension; I73.9 Peripheral vascular disease, unspecified; G89.29 Other chronic pain; R10.9 Unspecified abdominal pain; R74.8 Abnormal levels of other serum enzymes; E87.6 Hypokalemia; N26.1 Atrophy of kidney (terminal); R40.2412 Glasgow coma scale score 13-15, at arrival to emergency department; I77.9 Disorder of arteries and arterioles, unspecified; M25.561 Pain in right knee; I35.0 Nonrheumatic aortic (valve) stenosis; R33.9 Retention of urine, unspecified; J44.9 Chronic obstructive pulmonary disease, unspecified; W18.30XA Fall on same level, unspecified, initial encounter; R29.6 Repeated falls; M19.90 Unspecified osteoarthritis, unspecified site; Z98.42 Cataract extraction status, left eye; Z98.41 Cataract extraction status, right eye; Z90.49 Acquired absence of other specified parts of digestive tract; Z88.0 Allergy status to penicillin; Z88.2 Allergy status to sulfonamides; Z88.8 Allergy status to other drugs, medicaments and biological substances; Z87.891 Personal history of nicotine dependence; Z82.49 Family history of ischemic heart disease and other diseases of the circulatory system; Z83.3 Family history of diabetes mellitus; Z87.442 Personal history of urinary calculi; Z90.710 Acquired absence of both cervix and uterus; Z82.3 Family history of stroke; Z95.820 Peripheral vascular angioplasty status with implants and grafts; Z79.82 Long term (current) use of aspirin; Y92.199 Unspecified place in other specified residential institution as the place of occurrence of the external cause
CPT/HCPCS: 36415; 71010; 74000; 74176; 76775; 80048; 80053; 80076; 81003; 81015; 83605; 83690; 83735; 83880; 84100; 84484; 85025; 85027; 85610; 85730; 86140; 87040; 87077; 87086; 87186; 87641; 94640; 94760; A9270-GY; J0744; J1630; J1644; J1650; J2270; J2405; J3480